=== PATIENT | male | born 1985 | race Caucasian/White ===

== ENCOUNTER 2016-08-27 23:36 | Emergency (ER) | payer SELFPAY ==
[~2016-08-27] VITALS: Ht 177.8 cm; Wt 71.3 kg
[~2016-08-27 23:36] MED LIST: BACT800T5 PO; DOXY100T PO; PERC5TAB12 PO
[2016-08-27 23:43] VITALS: BP 134/79; PULSE 80; RESP 12; TEMP 97.7; O2SAT 100
[2016-08-27 23:53] VITALS: RESP 16; TEMP 97.7
[2016-08-27] MEDS ORDERED: PENI500T PO (23:59)
[2016-08-27] MEDS ORDERED: IBUP-232 PO (23:59)
--- NOTE | 2016-08-27 23:59 | PD ---
HPI Chief Complaint: Oral / Dental Pain or Problem Time Seen by Provider: 23:56 Travel History International Travel<30 days: No Contact w/Intl Traveler<30days: No Traveled to known affect area: No History of Present Illness HPI 31-year-old male presents to the emergency department for severe dental disease with a dental pain and possible abscess. Symptoms have been present for some time now but have worsened over the past 24 hours. [id number]-[id number] medication as provided no relief. Patient plans on seeing a dentist but is here for prescription for antibiotic in the interim. Patient is not diabetic. Patient reports pain 8/10 intensity. PFSH Past Medical History Narrative Medical Musculoskeletal pain; no surgery; tobacco use substance use alcohol use; nursing notes reviewed Hx Anticoagulant Therapy: No Blood Disorders: No Cancer: No Cardiovascular Problems: No Chemotherapy: No Cerebrovascular Accident: No Diabetes: No Diminished Hearing: No Endocrine: No Genitourinary: No Immune Disorder: No Musculoskeletal: Yes (LT ANKLE SX) Neurologic: No Psychiatric: No Reproductive: No Respiratory: No Radiation Therapy: No Past Surgical History AICD: No Arteriovenous Shunt: No Hysterectomy: No Insulin Pump: No Joint Replacement: No Pacemaker: No Other Surgery: Yes (RIGHT ELBOW SURGERY) Social History Alcohol Use: Yes (2X WEEK) Tobacco Use: Yes (1 PPD) Substance Use: Yes (WEED/ ROXIES / DILAUDID PILLS DAILY) Allergies-Medications (Allergen,Severity, Reaction): Coded Allergies: *MDRO Multi-Drug Resistant Organism (Verified Adverse Reaction, Unknown, ) MRSA (thigh wound) 10/2014 Reported Meds & Prescriptions Reported Meds & Active Scripts Active Ibuprofen 600 Mg Tab 600 Mg PO Q6H PRN Penicillin V Potassium 500 Mg Tab 500 Mg PO Q6H 7 Days Percocet 5-325 mg (Oxycodone/Acetaminophen) Oxycodone 5/325 Acetaminophen Tab 1 Tab PO Q6H PRN Bactrim DS (Sulfamethoxazole-Trimethoprim DS) 1 Tab Tab 1 Tab PO BID Doxycycline Hyclate 100 mg (Doxycycline Hyclate) 100 Mg Cap 1 Tab PO BID Review of Systems Except as stated in HPI: all other systems reviewed are Neg General / Constitutional: No: Fever, Chills HENT: Positive: Dental Difficulties Cardiovascular: No: Chest Pain or Discomfort Respiratory: No: Shortness of Breath Gastrointestinal: No: Abdominal Pain Genitourinary: No: Flank Pain Musculoskeletal: No: Myalgias, Arthralgias Skin: No Rash Neurologic: No: Weakness Psychiatric: Positive: Substance Abuse, No: Anxiety Hematologic/Lymphatic: No: Lymph Node Enlargement Physical Exam Narrative GENERAL: Well-developed well-nourished male in no acute distress no respiratory distress; GCS 15 SKIN: Warm and dry. HEAD: Normocephalic. EYES: No scleral icterus. No injection or drainage. ENT: Airway is patent, extensive dental disease with dental caries and gingival edema. NECK: Supple, trachea midline. No JVD or lymphadenopathy. CARDIOVASCULAR: Regular rate and rhythm without murmurs, gallops, or rubs. RESPIRATORY: Breath sounds equal bilaterally. No accessory muscle use. GASTROINTESTINAL: Abdomen soft, non-tender, nondistended. Data Data Last Documented VS Vital Signs Date Time Temp Pulse Resp B/P Pulse Ox O2 Delivery O2 Flow Rate FiO2 08/27/16 23:53 97.7 16 08/27/16 23:43 80 134/79 100 Orders Penicillin V Potassium (Veetids) (08/28/16 00:00) Ibuprofen (Motrin) (08/28/16 00:00) [facility] Medical Decision Making Medical Screen Exam Complete: Yes Emergency Medical Condition: Yes Medical Record Reviewed: Yes Differential Diagnosis Dentalgia, dental abscess, fractured cusp, apical abscess Narrative Course Patient administered first dose of oral antibiotic and ibuprofen; patient encouraged to follow-up with dentist; patient is stable for outpatient management Diagnosis Primary Impression: Dentalgia Additional Impression: Dental abscess Referrals: Dentist call for appointment Patient Instructions: General Instructions Additional Instructions: Follow-up with dentist Complete course of antibiotic May use acetaminophen/Tylenol 650 mg every 6 hours as needed for fever 100.4F or greater or for mild pain May use ibuprofen 600 mg as often as every 6 hours for pain associated with inflammation or for fever 100.4F or greater Follow-up with dentist Return to the emergency department for any concerns or change in condition May use [id number] Orajel for symptom relief per package directions Med/Other Pt SpecificInfo: Prescription(s) given Scripts Ibuprofen 600 Mg [id number] Mg PO Q6H PRN (Pain/Inflammation) #12 TAB Ref 0 Prov:Veronica Galaviz MD 08/27/16 Penicillin V Potassium 500 Mg Rxa085 Mg PO Q6H 7 Days Ref 0 Prov:Veronica Galaviz MD 08/27/16 Disposition: 01 DISCHARGE HOME Condition: Stable Veronica Galaviz MD Aug 27, 2016 23:59
[2016-08-28] MEDS ORDERED: IBUPROFEN 800 MG TAB PO ONE
[2016-08-28] MEDS ORDERED: PENICILLIN V POTASSIUM 500 MG TAB PO ONE
== END 2016-08-28 00:22 | disposition home or self-care (01) ==
LOC: PHED 23:36
DX: K04.7 Periapical abscess without sinus (principal); K08.89 Other specified disorders of teeth and supporting structures; F17.210 Nicotine dependence, cigarettes, uncomplicated
CPT/HCPCS: 99283

== ENCOUNTER 2016-10-03 23:29 | Emergency (ER) | payer SELFPAY ==
[~2016-10-03 23:29] MED LIST changes: +IBUP-232 PO; +PENI500T PO
[2016-10-03 23:31] VITALS: BP 145/73; PULSE 60; RESP 16; TEMP 98.4; O2SAT 100
[2016-10-04] MEDS ORDERED: CLINDAMYCIN 150 MG CAP PO ONE
[2016-10-04] MEDS ORDERED: NAPR500 PO (00:04)
[2016-10-04] MEDS ORDERED: CLIN1CAP5 PO (00:04)
--- NOTE | 2016-10-04 00:04 | PD ---
HPI Chief Complaint: Oral / Dental Pain or Problem Time Seen by Provider: 00:00 Travel History International Travel<30 days: No Contact w/Intl Traveler<30days: No Traveled to known affect area: No History of Present Illness HPI Patient comes in complaining of right lower dental pain ongoing for 2 days. Patient's pain is worse with cold. Patient has been using warm saltwater gargles and Listerine with no improvement of symptoms. Pain is throbbing pressure radiates to his right mandible. Patient states he had similar happen to him about a month ago was seen and started on antibiotics but has not seen a dentist yet. Patient denies any fevers, difficulty swallowing, nausea, vomiting , headache, neck pain, chest pain, or shortness of breath. PFSH Past Medical History Medical History: Denies Significant Hx Hx Anticoagulant Therapy: No Blood Disorders: No Cancer: No Cardiovascular Problems: No Chemotherapy: No Cerebrovascular Accident: No Diabetes: No Diminished Hearing: No Endocrine: No Genitourinary: No Immune Disorder: No Musculoskeletal: Yes (LT ANKLE SX) Neurologic: No Psychiatric: No Reproductive: No Respiratory: No Radiation Therapy: No Past Surgical History AICD: No Arteriovenous Shunt: No Hysterectomy: No Insulin Pump: No Joint Replacement: No Pacemaker: No Other Surgery: Yes (RIGHT ELBOW SURGERY,) Social History Alcohol Use: Yes (1 WEEK ) Tobacco Use: Yes (1 PPD) Substance Use: Yes (WEED/ ROXIES / DILAUDID PILLS DAILY) Allergies-Medications (Allergen,Severity, Reaction): Coded Allergies: *MDRO Multi-Drug Resistant Organism (Verified Adverse Reaction, Unknown, ) MRSA (thigh wound) 10/2014 Reported Meds & Prescriptions Reported Meds & Active Scripts Active Naprosyn (Naproxen) 500 Mg Tab 500 Mg PO Q12HR PRN Clindamycin (Clindamycin HCl) 150 Mg Cap 2 Cap PO Q6H 10 Days Review of Systems Except as stated in HPI: all other systems reviewed are Neg Physical Exam Narrative GENERAL: Well-developed, well nourished, in no acute distress, and non-ill appearing. SKIN: Focused skin assessment warm and dry. HEAD: Atraumatic. Normocephalic. EYES: Pupils equal and round. EOMI. No scleral icterus. No injection or drainage. ENT: No nasal bleeding or discharge. Mucous membranes pink and moist. Poor dentition with no visible or palpable abscess. There is mild soft tissue swelling noted. Floor the mouth, submandibular, submental are all soft to palpation. NECK: Trachea midline. No cervical lymphadenopathy. Supple. No nuclear rigidity. RESPIRATORY: No accessory muscle use. No respiratory distress. MUSCULOSKELETAL: No obvious deformities. No clubbing. No cyanosis. No edema. Full range of motion. NEUROLOGICAL: Awake and alert. No obvious cranial nerve deficits. Motor grossly within normal limits. Normal speech. PSYCHIATRIC: Appropriate mood and affect; insight and judgment normal. Data Data Last Documented VS Vital Signs Date Time Temp Pulse Resp B/P Pulse Ox O2 Delivery O2 Flow Rate FiO2 10/03/16 23:31 98.4 60 16 145/73 100 Orders Clindamycin (Cleocin) (10/04/16 00:00) [facility] Medical Decision Making Medical Screen Exam Complete: Yes Emergency Medical Condition: Yes Differential Diagnosis Dental abscess, dental infection, dentalgia, other Narrative Course The patient presented with dental pain. There is no fever. There is no significant facial swelling or evidence of cellulitis. There is poor dentition but no evidence of drainable abscess at this time. There is no evidence of significant deep or invading abscess at this time. The patient will be placed on antibiotics and pain medication. The patient was instructed to follow up with a dentist. The patient was given the dental referral sheet. Warnings were discussed with the patient regarding worsening of infection. The patient is to return if pain worsens, develops progressive swelling or facial redness or fever. The patient agrees with plan. Patient in no obvious distress upon re-evaluation. Patient was asked if they wanted to speak to my attending, which the patient did not wish to do at this time. Any questions/concerns in reference to patient diagnosis/condition discussed and clarified prior to patient's discharge. Reinforced sheer importance of close follow up with patient's primary physician or primary care clinic and/or dentist. Instructed patient to return to ED immediately, if symptoms return/worsen. Pt showed understanding of above instructions. Further instructions and recommendations were detailed in discharge paperwork. Pt ambulated without difficulty out of ED at discharge. Diagnosis Primary Impression: Infected dental caries Patient Instructions: Dental Abscess (ED), Dental Caries (ED), General Instructions Additional Instructions: Follow-up with your primary care physician and dentist as soon as possible. Rinse mouth with warm salt water gargles. Take all medication as prescribed. Return to the emergency department if symptoms get worse. Med/Other Pt SpecificInfo: Prescription(s) given Scripts Naproxen (Naprosyn)500 Mg Mpp653 Mg PO Q12HR PRN (PAIN SCALE 1 TO 10) #14 TAB Ref 0 Prov:Carlotta Draper DO 10/04/16 Clindamycin 150 Mg Cap2 Cap PO Q6H 10 Days Ref 0 Prov:Carlotta Draper DO 10/04/16 Disposition: 01 DISCHARGE HOME Condition: Stable Logan Bravo Oct 04, 2016 00:03
== END 2016-10-04 01:04 | disposition home or self-care (01) ==
LOC: NEPD 23:29
DX: K02.9 Dental caries, unspecified (principal); Z79.899 Other long term (current) drug therapy; Z72.0 Tobacco use
CPT/HCPCS: 99284

== ENCOUNTER 2016-10-07 18:33 | Emergency (ER) | payer SELFPAY ==
[~2016-10-07] VITALS: Ht 177.8 cm; Wt 70.3 kg
[~2016-10-07 18:33] MED LIST changes: -BACT800T5 PO; +CLIN1CAP5 PO; -DOXY100T PO; -IBUP-232 PO; +NAPR500 PO; -PENI500T PO; -PERC5TAB12 PO
[2016-10-07 18:49] VITALS: BP 133/65; PULSE 73; RESP 16; TEMP 98.3; O2SAT 100
--- NOTE | 2016-10-07 19:20 | PD ---
HPI Chief Complaint: Oral / Dental Pain or Problem Time Seen by Provider: 19:13 Travel History International Travel<30 days: No Contact w/Intl Traveler<30days: No Traveled to known affect area: No History of Present Illness HPI The patient is a 31-year-old male who comes in for the third time this year for dental pain. He was seen at the [facility] 4 days ago and prescribed clindamycin and Naprosyn. He states he wants something more for the pain. He did not call a dentist because he says he cannot afford a dentist. He does have a history of benzodiazepine, cocaine, marijuana and alcohol abuse. He denies any fever. He states he has had this pain for 6 months after it got chipped. The pain is around tooth #29. PFSH Past Medical History Hx Anticoagulant Therapy: No Blood Disorders: No Cancer: No Cardiovascular Problems: No Chemotherapy: No Cerebrovascular Accident: No Diabetes: No Diminished Hearing: No Endocrine: No Genitourinary: No Immune Disorder: No Musculoskeletal: Yes (LT ANKLE SX) Neurologic: No Psychiatric: No Reproductive: No Respiratory: No Radiation Therapy: No Past Surgical History AICD: No Arteriovenous Shunt: No Hysterectomy: No Insulin Pump: No Joint Replacement: No Pacemaker: No Other Surgery: Yes (RIGHT ELBOW SURGERY,) Social History Alcohol Use: Yes (1 WEEK ) Tobacco Use: Yes (1 PPD) Substance Use: Yes (WEED/ ROXIES / DILAUDID PILLS DAILY) Allergies-Medications (Allergen,Severity, Reaction): Coded Allergies: *MDRO Multi-Drug Resistant Organism (Verified Adverse Reaction, Unknown, ) MRSA (thigh wound) 10/2014 Reported Meds & Prescriptions Reported Meds & Active Scripts Active Naprosyn (Naproxen) 500 Mg Tab 500 Mg PO Q12HR PRN Clindamycin (Clindamycin HCl) 150 Mg Cap 2 Cap PO Q6H 10 Days Review of Systems Except as stated in HPI: all other systems reviewed are Neg Physical Exam Narrative GENERAL: Well-nourished, well-developed patient in moderate apparent distress with his dental pain. His vital signs are normal. SKIN: Focused skin assessment warm/dry. HEAD: Normocephalic. EYES: No scleral icterus. No injection or drainage. NECK: Supple, trachea midline. No JVD or lymphadenopathy. CARDIOVASCULAR: Regular rate and rhythm without murmurs, gallops, or rubs. RESPIRATORY: Breath sounds equal bilaterally. No accessory muscle use. GASTROINTESTINAL: Abdomen soft, non-tender, nondistended. MUSCULOSKELETAL: No cyanosis, or edema. BACK: Nontender without obvious deformity. No CVA tenderness. DENTAL: No loose or chipped teeth. No malocclusion. No drainable abscesses are noted. No evidence of Kiel's angina as noted. The patient was less cooperative than normal during the exam. No external swelling of the cheek is noted. Data Data Last Documented VS Vital Signs Date Time Temp Pulse Resp B/P Pulse Ox O2 Delivery O2 Flow Rate FiO2 10/07/16 18:49 98.3 73 16 133/65 100 MDM Medical Decision Making Medical Screen Exam Complete: Yes Emergency Medical Condition: Yes Medical Record Reviewed: Yes Differential Diagnosis Dental infection, drainable abscess, drug seeking behavior Narrative Course The patient left immediately after he learned that he was not going to get any narcotic pain medications. No drainable abscesses were noted. No evidence of Kiel's angina was noted. There was no swelling of the buccal mucosa. The patient states that he is taking his antibiotics correctly and his Naprosyn correctly but this is questionable. He needs to follow-up with a dentist. Impressions: Dental infection, drug seeking behavior Diagnosis Primary Impression: Dentalgia Additional Impression: Drug-seeking behavior Additional Instructions: The patient was advised to follow-up with a dentist. He should continue his medications. Disposition: 07 AGAINST MEDICAL ADVICE Condition: Stable Buddy Irene MD Oct 07, 2016 19:20
== END 2016-10-07 19:14 | disposition left against medical advice (07) ==
LOC: PHED 18:33
DX: K08.89 Other specified disorders of teeth and supporting structures (principal); Z76.5 Malingerer [conscious simulation]; F17.210 Nicotine dependence, cigarettes, uncomplicated
CPT/HCPCS: 99281

== ENCOUNTER 2017-05-14 20:59 | Emergency (ER) | payer SELFPAY ==
[~2017-05-14] VITALS: Ht 175.3 cm; Wt 69.0 kg
[~2017-05-14 20:59] MED LIST changes: +CLIN150C14 PO; -CLIN1CAP5 PO
[2017-05-14 21:02] VITALS: BP 133/70; PULSE 91; RESP 18; TEMP 97.9; O2SAT 98
--- NOTE | 2017-05-14 21:27 | PD ---
HPI Chief Complaint: Musculoskeletal Complaint Time Seen by Provider: 21:20 Travel History International Travel<30 days: No Contact w/Intl Traveler<30days: No Traveled to known affect area: No History of Present Illness HPI The patient is a 32-year-old male who complains of a sharp rib pain for 2 weeks on the left lateral/lower ribs. He states the pain intensity is an 8/10. He denies any fever but did have a recent cough. He does smoke one pack a day. He does have a history of alcohol and cocaine abuse. He denies any trauma. PFSH Past Medical History Medical History: Denies Significant Hx Hx Anticoagulant Therapy: No Blood Disorders: No Cancer: No Cardiovascular Problems: No Chemotherapy: No Cerebrovascular Accident: No Diabetes: No Diminished Hearing: No Endocrine: No Genitourinary: No Immune Disorder: No Musculoskeletal: Yes (LT ANKLE SX) Neurologic: No Psychiatric: No Reproductive: No Respiratory: No Radiation Therapy: No Tetanus Vaccination: Unknown Influenza Vaccination: No ?: Not Past Surgical History AICD: No Arteriovenous Shunt: No Hysterectomy: No Insulin Pump: No Joint Replacement: No Pacemaker: No Other Surgery: Yes (RIGHT ELBOW SURGERY,) Social History Alcohol Use: No (denies) Tobacco Use: Yes (1 PPD) Substance Use: Yes (WEED/ ROXIES / DILAUDID PILLS DAILY ( previous hx )) Allergies-Medications (Allergen,Severity, Reaction): Coded Allergies: *MDRO Multi-Drug Resistant Organism (Verified Adverse Reaction, Unknown, ) MRSA (thigh wound) 10/2014 Reported Meds & Prescriptions Reported Meds & Active Scripts Active Naprosyn (Naproxen) 500 Mg Tab 500 Mg PO Q12HR PRN Clindamycin (Clindamycin HCl) 150 Mg Cap 2 Cap PO Q6H 10 Days Review of Systems Except as stated in HPI: all other systems reviewed are Neg Physical Exam Narrative GENERAL: The patient is alert, oriented 3 and slight apparent distress with his left rib discomfort. His vital signs show heart rate of 91 but are otherwise normal. He does smell of tobacco. SKIN: Focused skin assessment warm/dry. HEAD: Atraumatic. Normocephalic. EYES: Pupils equal and round. No scleral icterus. No injection or drainage. ENT: No nasal bleeding or discharge. Mucous membranes pink and moist. NECK: Trachea midline. No JVD. CARDIOVASCULAR: Regular rate and rhythm. No murmur appreciated. RESPIRATORY: No accessory muscle use. Clear to auscultation. Breath sounds equal bilaterally. No rubs are heard. I cannot reproduce completely the patient's pain by pressing on the chest wall. GASTROINTESTINAL: Abdomen soft, non-tender, nondistended. Hepatic and splenic margins not palpable. MUSCULOSKELETAL: No obvious deformities. No clubbing. No cyanosis. No edema. NEUROLOGICAL: Awake and alert. No obvious cranial nerve deficits. Motor grossly within normal limits. Normal speech. PSYCHIATRIC: Appropriate mood and affect; insight and judgment normal. Data Data Last Documented VS Vital Signs Date Time Temp Pulse Resp B/P (MAP) Pulse Ox O2 Delivery O2 Flow Rate FiO2 05/14/17 21:02 97.9 91 18 133/70 (91) 98 Orders Orders Chest, Pa & Lat (05/14/17 21:27) Electrocardiogram (05/14/17 22:15) MDM Medical Decision Making Medical Screen Exam Complete: Yes Emergency Medical Condition: Yes Medical Record Reviewed: Yes Interpretation(s) X-ray shows small left pleural effusion with minimal left basilar airspace disease. Differential Diagnosis Pneumonia, pleural effusion, pneumothorax-unlikely, pulmonary embolus-unlikely Narrative Course The patient appears to have a small questionable pneumonia with left pleural effusion. This likely accounts for his pleuritic chest pain. Plan: The patient cannot afford antibiotics and will be given Keflex 500 mg 3 times daily for 10 days. He will get a shot of Rocephin here. He will need to quit smoking. Diagnosis Primary Impression: Left lower lobe pneumonia Additional Impression: Pleural effusion, left Additional Instructions: As we discussed, quit smoking and the antibiotic is one tablet 3 times daily. We will give you a shot tonight. Take Motrin 800 mg 3 times daily. Med/Other Pt SpecificInfo: Prescription(s) given (kefl) Scripts Ibuprofen (Ibuprofen) 800 Mg Tab 800 MG PO TID, #33 TAB 0 Refills Prov: Buddy Irene MD 05/14/17 Cephalexin (Keflex) 500 Mg Capsule 500 MG PO TID for Infection for 10 Days, CAP 0 Refills Prov: Buddy Irene MD 05/14/17 Disposition: 01 DISCHARGE HOME Condition: Stable Buddy Irene MD May 14, 2017 21:27
--- NOTE | 2017-05-14 22:23 | RADRPT ---
EXAM DATE/TIME: 05/14/2017 21:30 [facility] COMPARISON: No previous studies available for comparison. INDICATIONS : Left side chest pain. MEDICAL HISTORY : None. SURGICAL HISTORY : None. ENCOUNTER: Initial ACUITY: 2 weeks PAIN SCORE: 5/10 LOCATION: Left chest FINDINGS: PA and lateral views of the chest demonstrate a small left pleural effusion. Minimal left basilar air space disease. Right lung clear. Heart size normal. CONCLUSION: 1. Small left pleural effusion with minimal left basilar airspace disease. Daniel Brantley MD on May 14, 2017 at 22:20 Board Certified Radiologist. This report was verified electronically.
[2017-05-14] MEDS ORDERED: IBUP1TAB7 PO (22:46)
[2017-05-14] MEDS ORDERED: CEPH-460 PO (22:46)
[2017-05-14] MEDS ORDERED: LIDOCAINE HCL 1% PF 30 ML VIAL ONE (22:50)
[2017-05-14] MEDS ORDERED: LIDOCAINE HCL 1% 50 ML VIAL XX ONE (23:00)
[2017-05-14 23:26] VITALS: BP 130/65; TEMP 98.4
--- NOTE | 2017-05-15 22:18 | EKG ---
Date Performed: 05/14/2017 Time Performed: 22:20:05 PTAGE: 32 years EKG: Sinus rhythm MINIMAL VOLTAGE CRITERIA FOR LVH, CONSIDER NORMAL VARIANT BORDERLINE ECG PREVIOUS TRACING : 08/17/2013 18.31 Since the prior tracing, there has been no significant feldman DOCTOR: Rickey Ospina Interpretating Date/Time 05/15/2017 22:17:48
== END 2017-05-14 23:29 | disposition home or self-care (01) ==
LOC: PHEFT 20:59
DX: J18.9 Pneumonia, unspecified organism (principal); J90 Pleural effusion, not elsewhere classified; F17.210 Nicotine dependence, cigarettes, uncomplicated
CPT/HCPCS: 71046; 93005; 96372; 99284; J0696

== ENCOUNTER 2017-08-16 15:01 | Emergency (ER) | payer SELFPAY ==
[~2017-08-16] VITALS: Ht 175.3 cm; Wt 68.5 kg
[~2017-08-16 15:01] MED LIST changes: +CEPH-460 PO; +IBUP1TAB7 PO
[2017-08-16 15:04] VITALS: BP 124/66; PULSE 86; RESP 16; TEMP 99; O2SAT 96
== END 2017-08-16 16:30 | disposition left against medical advice (07) ==
LOC: NED 15:01
DX: R10.9 Unspecified abdominal pain (principal)
CPT/HCPCS: 99281

== ENCOUNTER 2017-09-03 20:58 | Inpatient (IN) | payer OTHER ==
[~2017-09-03] VITALS: Ht 175.3 cm; Wt 69.0 kg
[2017-09-03] MEDS ORDERED: IOHEXOL 350 MG/ML 10 ML VIAL (for RAD DIAG) IVCONTRAST ONE (20:59)
[2017-09-03 21:04] VITALS: BP 140/85; PULSE 106; RESP 20; TEMP 99.6; O2SAT 100
--- NOTE | 2017-09-03 21:12 | PD ---
HPI Chief Complaint: Chest Pain Time Seen by Provider: 21:09 Travel History International Travel<30 days: No Contact w/Intl Traveler<30days: No Traveled to known affect area: No History of Present Illness HPI 32-year-old male smoker presents under police custody for evaluation of chest pain. Symptom onset 3 days ago. he reports a substernal sharp chest pain which is worse with deep inspiration when coughing radiates into the back, no alleviating factors reports that he has had a productive cough for the past week. Denies shortness of breath, nausea or vomiting, abdominal pain, flank pain, fevers or chills. In addition the patient has an abscess in the left arm. Symptom onset 1 week ago. He reports that he has had frequent MRSA skin infections in the past and this feels similar. He reports that he has a history of IV drug use, he does not recall the last time that he injected heroin. He has no other complaints at this time. PFSH Past Medical History Hx Anticoagulant Therapy: No Blood Disorders: No Cancer: No Cardiovascular Problems: No Chemotherapy: No Cerebrovascular Accident: No Diabetes: No Diminished Hearing: No Endocrine: No Genitourinary: No Immune Disorder: No Musculoskeletal: Yes (LT ANKLE SX) Neurologic: No Psychiatric: No Reproductive: No Respiratory: Yes Radiation Therapy: No Past Surgical History AICD: No Arteriovenous Shunt: No Hysterectomy: No Insulin Pump: No Joint Replacement: No Pacemaker: No Other Surgery: Yes (RIGHT ELBOW SURGERY,) Social History Alcohol Use: No (denies) Tobacco Use: Yes (1 PPD) Substance Use: Yes (WEED/ ROXIES / DILAUDID PILLS DAILY ( previous hx )) Allergies-Medications (Allergen,Severity, Reaction): Coded Allergies: *MDRO Multi-Drug Resistant Organism (Verified Adverse Reaction, Unknown, ) MRSA (thigh wound) 10/2014 Reported Meds & Prescriptions Reported Meds & Active Scripts Active No Active Prescriptions or Reported Medications Review of Systems Except as stated in HPI: all other systems reviewed are Neg Physical Exam Narrative GENERAL: Well-developed well-nourished male in no acute distress SKIN: Warm and dry. 3 cm fluctuant left forearm abscess. HEAD: Atraumatic. Normocephalic. EYES: Pupils equal and round. No scleral icterus. No injection or drainage. ENT: No nasal bleeding or discharge. Mucous membranes pink and moist. NECK: Trachea midline. No JVD. CARDIOVASCULAR: Regular rate and rhythm. No murmur appreciated. RESPIRATORY: No accessory muscle use. Clear to auscultation. Breath sounds equal bilaterally. GASTROINTESTINAL: Abdomen soft, non-tender, nondistended. Hepatic and splenic margins not palpable. MUSCULOSKELETAL: No obvious deformities. No clubbing. No cyanosis. No edema. NEUROLOGICAL: Awake and alert. No obvious cranial nerve deficits. Motor grossly within normal limits. Normal speech. PSYCHIATRIC: Appropriate mood and affect; insight and judgment normal. Data Data Last Documented VS Vital Signs Date Time Temp Pulse Resp B/P (MAP) Pulse Ox O2 Delivery O2 Flow Rate FiO2 09/03/17 21:04 99.6 106 20 140/85 (103) 100 Orders Orders Electrocardiogram (09/03/17 21:09) Ckmb (Isoenzyme) Profile (09/03/17 21:09) Complete Blood Count With Diff (09/03/17 21:09) Comprehensive Metabolic Panel (09/03/17 21:09) D-Dimer (09/03/17 21:09) Magnesium (Mg) (09/03/17 21:09) Troponin I (09/03/17 21:09) Lipase (09/03/17 21:09) Chest, Single Ap (09/03/17 21:09) Ecg Monitoring (09/03/17 21:09) Iv Access Insert/Monitor (09/03/17 21:09) Oximetry (09/03/17 21:09) Aspirin Chew (Aspirin Chew) (09/03/17 21:15) Lidocai-Epi 1%-1:100,000 Inj (Xylocaine- (09/03/17 21:15) Wound Culture And Gram Stain (09/03/17 21:09) Vancomycin Inj (Vancomycin Inj) (09/03/17 23:15) Ct Pulmonary Angiogram (09/04/17 ) Iohexol 350 Inj (Omnipaque 350 Inj) (09/03/17 20:59) Cefepime Inj (Maxipime Inj) (09/04/17 01:00) Sodium Chlor 0.9% 1000 Ml Inj (Ns 1000 M (09/04/17 00:54) Drug Screen, Random Urine (09/04/17 00:54) Lactic Acid Sepsis Protocol (09/04/17 00:54) Blood Culture (09/04/17 00:54) Mri C Spine W&W/O Contrast (09/04/17 ) Mri T Spine W & W/O Contrast (09/04/17 ) Mri L Spine W&W/O Contrast (09/04/17 ) Admit Order (Ed Use Only) (09/04/17 01:10) Labs Laboratory Tests Test 09/03/17 21:24 White Blood Count 13.9 TH/MM3 Red Blood Count 4.98 MIL/MM3 Hemoglobin 13.3 GM/DL Hematocrit 39.6 % Mean Corpuscular Volume 79.5 FL Mean Corpuscular Hemoglobin 26.7 PG Mean Corpuscular Hemoglobin Concent 33.5 % Red Cell Distribution Width 15.0 % Platelet Count 390 TH/MM3 Mean Platelet Volume 7.3 FL Neutrophils (%) (Auto) 86.3 % Lymphocytes (%) (Auto) 8.4 % Monocytes (%) (Auto) 4.8 % Eosinophils (%) (Auto) 0.1 % Basophils (%) (Auto) 0.4 % Neutrophils # (Auto) 12.0 TH/MM3 Lymphocytes # (Auto) 1.2 TH/MM3 Monocytes # (Auto) 0.7 TH/MM3 Eosinophils # (Auto) 0.0 TH/MM3 Basophils # (Auto) 0.1 TH/MM3 CBC Comment DIFF FINAL Differential Comment D-Dimer Quantitative (PE/DVT) 1.98 MG/L FEU Blood Urea Nitrogen 11 MG/DL Creatinine 0.85 MG/DL Random Glucose 96 MG/DL Total Protein 8.0 GM/DL Albumin 3.1 GM/DL Calcium Level 9.0 MG/DL Magnesium Level 2.2 MG/DL Alkaline Phosphatase 76 U/L Aspartate Amino Transf (AST/SGOT) 21 U/L Alanine Aminotransferase (ALT/SGPT) 29 U/L Total Bilirubin 0.5 MG/DL Sodium Level 131 MEQ/L Potassium Level 4.1 MEQ/L Chloride Level 95 MEQ/L Carbon Dioxide Level 28.1 MEQ/L Anion Gap 8 MEQ/L Estimat Glomerular Filtration Rate 105 ML/MIN Total Creatine Kinase 26 U/L Troponin I LESS THAN 0.02 NG/ML Lipase 71 U/L MDM Medical Decision Making Medical Screen Exam Complete: Yes Emergency Medical Condition: Yes Medical Record Reviewed: Yes Differential Diagnosis Bronchitis, pleurisy, pericarditis, myocarditis, acute coronary syndrome, aortic dissection, pulmonary embolism, endocarditis Narrative Course The patient was placed on ECG monitoring pulse oximetry. 12 EKG was obtained revealing sinus rhythm with sinus arrhythmia.. Lab work, chest x-ray ordered. The abscess was drained, he verbally consented. Vancomycin initiated. Aspirin administered. CBC reveals WBC count of 13.9. CMP reveals a sodium 131, chloride 95, cardiac enzymes within normal limits. D-dimer is elevated, CT pulmonary angiogram has been ordered. CT pulmonary angiogram is negative for pulmonary emboli but he does have soft tissue swelling around T9-T10 concerning for discitis. He does have some tenderness to palpation along his thoracic spine and his history of IV drug use would certainly be consistent with the CT findings. IV cefepime was added on. The patient will be admitted for further evaluation and treatment. Procedures Procedure Narrative INCISION AND DRAINAGE OF ABSCESS: The area was prepped and was sterilely draped. A subcutaneous wheal of 1% Xylocaine with epinephrine with a total number 7 mL was used to anesthetize the area. The area was properly anesthetized. A number 11 scalpel was used to make a 1.5-cm incision across the area of the abscess. Cultures were obtained. The abscess was drained an irrigated with normal saline. Diagnosis Primary Impression: Discitis Additional Impressions: Leukocytosis Abscess of left arm IV drug user Admitting Information Admitting Physician Requests: Admit Scripts No Active Prescriptions or Reported Meds Raudel Lowry Sep 03, 2017 21:12
[2017-09-03] MEDS ORDERED: ASPIRIN 81 MG CHEW TAB PO ONE (21:15)
[2017-09-03] MEDS ORDERED: LIDOCAINE 1%/EPINEPHrine 1:100,000 SOLN 50 ML VIAL INFIL ONE (21:15)
[2017-09-03 21:56] LABS: BASOPHIL # 0.1 TH/MM3 (0-0.2); BASOPHIL % 0.4 % (0.0-2.0); EOSINOPHIL % 0.1 % (0.0-4.0); HEMATOCRIT 39.6 % (39.0-51.0); HEMOGLOBIN 13.3 GM/DL (13.0-17.0); LYMPH % 8.4 % (9.0-44.0); LYMPHOCYTE # 1.2 TH/MM3 (1.0-4.8); MEAN CELL VOLUME 79.5 FL (80.0-100.0); MEAN CORPUSCULAR HEMOGLOBIN 26.7 PG (27.0-34.0); MEAN CORPUSCULAR HGB CONC 33.5 % (32.0-36.0); MEAN PLATELET VOLUME 7.3 FL (7.0-11.0); MONO % 4.8 % (0.0-8.0); MONOCYTE # 0.7 TH/MM3 (0-0.9); NEUT % 86.3 % (16.0-70.0); PLATELET COUNT 390 TH/MM3 (150-450); RED BLOOD COUNT 4.98 MIL/MM3 (4.50-5.90); WHITE BLOOD COUNT 13.9 TH/MM3 (4.0-11.0)
--- NOTE | 2017-09-03 21:57 | RADRPT ---
EXAM DATE: 09/03/2017 9:28 PM EDT AGE/SEX: 32 years / Male INDICATIONS: Chest pain. CLINICAL DATA: This is the patient's initial encounter. Patient reports that signs and symptoms have been present for 1 day and indicates a pain score of 5/10. MEDICAL/SURGICAL HISTORY: None. None. COMPARISON: No prior exams available for comparison. FINDINGS: A single AP view of the chest demonstrates the lungs to be symmetrically aerated without evidence of mass, infiltrate or effusion. The cardiomediastinal contours are unremarkable. Osseous structures a re intact. CONCLUSION: No acute findings. Minimal basilar atelectasis. Electronically signed by: Daniel Brantley MD 09/03/2017 9:56 PM EDT
[2017-09-03 22:10] LABS: ALBUMIN 3.1 GM/DL (3.4-5.0); AST (GOT) 21 U/L (15-37); BICARBONATE 28.1 MEQ/L (21.0-32.0); BLOOD UREA NITROGEN 11 MG/DL (7-18); CHLORIDE 95 MEQ/L (98-107); CREATININE 0.85 MG/DL (0.60-1.30); GLOMERULAR FILTRATION RATE 105 ML/MIN (>89); GLUCOSE,RANDOM 96 MG/DL (74-106); MAGNESIUM 2.2 MG/DL (1.5-2.5); SODIUM (NA) 131 MEQ/L (136-145)
[2017-09-03 22:11] LABS: ALT (GPT) 29 U/L (12-78)
[2017-09-03 22:14] LABS: ALKALINE PHOSPHATASE 76 U/L (45-117); TOTAL BILIRUBIN ADULT 0.5 MG/DL (0.2-1.0); TROPONIN I LESS THAN 0.02 NG/ML (0.02-0.05)
[2017-09-03] MEDS ORDERED: VANCOMYCIN INJ 1,000 MG in SODIUM CHLOR 0.9% 250 ML INJ 250 ML IV ONE (23:15)
--- NOTE | 2017-09-04 00:44 | RADRPT ---
EXAM DATE: 09/04/2017 12:38 AM EDT AGE/SEX: 32 years / Male INDICATIONS: Chest pain with shortness of breath. CLINICAL DATA: This is the patient's initial encounter. Patient reports that signs and symptoms have been present for 1 day and indicates a pain score of 10/10. MEDICAL/SURGICAL HISTORY: Asthma. Substance abuse . RADIATION DOSE: 9.36 CTDI (mGy) COMPARISON: No prior exams available for comparison. TECHNIQUE: Volumetric scanning was performed using a multi-row detector CT scanner during bolus infu caitlyn of 50 ml Omnipaque 350 (iohexol) nonionic water-soluble contrast as a single exam dose. The rhina a was post processed with a variety of visualization algorithms including full volume maximum intensi ty projection and sliding thin slab reformation. Using automated exposure control and adjustment of t he mA and/or kV according to patient size, radiation dose was kept as low as reasonably achievable to obtain optimal diagnostic quality images. DICOM format image data is available electronically for r eview and comparison. FINDINGS: Pulmonary Arteries: No filling defects are seen in the pulmonary arteries out to the subsegmental ve ssels. The left and right pulmonary arteries are normal in diameter. Lung: No infiltrates seen. Effusion: None. Mediastinum: No evidence of mediastinal or hilar adenopathy. Other: The axilla is unremarkable. There is some soft tissue swelling around the T9-T10 disc space w ith endplate irregularity. Differential includes discitis versus a compression fracture T10: For raffi briseno. CONCLUSION: 1. Soft tissue swelling around T9-T10 concerning for discitis. 2. No evidence of pulmonary emboli Electronically signed by: Maged Guallpa MD 09/04/2017 12:43 AM EDT
[2017-09-04] MEDS ORDERED: SODIUM CHLOR 0.9% 1000 ML INJ 1,000 ML IV SCH ×2 (00:54→02:00)
[2017-09-04] MEDS ORDERED: CEFEPIME INJ 2,000 MG in SODIUM CHLORIDE 0.9% INJ 100 ML IV ONE (01:00)
[2017-09-04] MEDS ORDERED: BISACODYL 10 MG SUPP RECTAL PRN (02:00)
[2017-09-04] MEDS ORDERED: Vancomycin Consult Pharmacy 1 EA OTHER SCH (02:00)
[2017-09-04] MEDS ORDERED: NALOXONE HCL 0.4 MG/ML AMP IV PUSH PRN (02:00)
[2017-09-04] MEDS ORDERED: MAGNESIUM HYDROXIDE SUSP 30 ML CUP PO PRN (02:00)
[2017-09-04] MEDS ORDERED: SODIUM CHLORIDE 0.9% FLUSH 10 ML FLUSH IV FLUSH PRN (02:00)
[2017-09-04] MEDS ORDERED: LACTULOSE SYRUP 20 GM/30 ML CUP PO PRN (02:00)
[2017-09-04] MEDS ORDERED: MORPHINE SULFATE 4 MG/ML INJ IV PUSH PRN (02:00)
[2017-09-04] MEDS ORDERED: SENNOSIDES 8.6 MG TAB PO PRN (02:00)
[2017-09-04] MEDS ORDERED: ACETAMINOPHEN 325 MG TAB PO PRN (02:00)
--- NOTE | 2017-09-04 02:28 | HHI.HP ---
[facility] No Primary Care Physician Admission Diagnosis Discitis, left arm abscess, leukocytosis Diagnoses: Travel History International Travel<30 Days: No Contact w/Intl Traveler <30 Da: No Traveled to Known Affected Are: No History of Present Illness 32-year-old male with a past medical history significant for IV drug abuse presents the emergency department for the evaluation of chest and back pain. The patient reports he has had pain in his lumbar spine for approximately 3-4 weeks with accompanying fever/chills. He also reports a chest pain/pressure that has been going on intermittently for the past 2 days, now resolved. He denies any abdominal pain. No nausea/vomiting/diarrhea. No lateralizing signs/ symptoms. No loss of bowel or bladder. No lower extremity weakness. Review of Systems Except as stated in HPI: all other systems reviewed are Neg Past Family Social History Past Medical History IV drug abuse Past Surgical History Right elbow Left ankle Reported Medications Reported Meds & Active Scripts Active No Active Prescriptions or Reported Medications Allergies: Coded Allergies: *MDRO Multi-Drug Resistant Organism (Verified Adverse Reaction, Unknown, ) MRSA (thigh wound) 10/2014 Family History Negative for CAD/DM Social History Smokes approximately 1 pack per day. Denies alcohol. History of IV drug abuse , last use approximately 3 months ago. Now snorts heroin. Physical Exam Vital Signs Vital Signs Date Time Temp Pulse Resp B/P (MAP) Pulse Ox O2 Delivery O2 Flow Rate FiO2 09/03/17 21:04 99.6 106 20 140/85 (103) 100 Physical Exam GENERAL: male lying in bed SKIN: No rashes, ecchymoses or lesions. Cool and dry. HEAD: Atraumatic. Normocephalic. No temporal or scalp tenderness. EYES: Pupils equal round and reactive. Extraocular motions intact. No scleral icterus. No injection or drainage. ENT: Nose without bleeding, purulent drainage or septal hematoma. Throat without erythema, tonsillar hypertrophy or exudate. Uvula midline. Airway patent. NECK: Trachea midline. No JVD or lymphadenopathy. Supple, nontender, no meningeal signs. CARDIOVASCULAR: Regular rate and rhythm without murmurs, gallops, or rubs. RESPIRATORY: Clear to auscultation. Breath sounds equal bilaterally. No wheezes , rales, or rhonchi. GASTROINTESTINAL: Abdomen soft, non-tender, nondistended. No hepato-splenomegaly , or palpable masses. No guarding. MUSCULOSKELETAL: Extremities without clubbing, cyanosis, or edema. No joint tenderness, effusion, or edema noted. No calf tenderness. NEUROLOGICAL: Awake and alert. Cranial nerves II through XII intact. Motor and sensory grossly within normal limits. Normal speech. Laboratory Laboratory Tests Test 09/03/17 21:24 09/04/17 01:27 09/04/17 01:48 White Blood Count 13.9 Red Blood Count 4.98 Hemoglobin 13.3 Hematocrit 39.6 Mean Corpuscular Volume 79.5 Mean Corpuscular Hemoglobin 26.7 Mean Corpuscular Hemoglobin Concent 33.5 Red Cell Distribution Width 15.0 Platelet Count 390 Mean Platelet Volume 7.3 Neutrophils (%) (Auto) 86.3 Lymphocytes (%) (Auto) 8.4 Monocytes (%) (Auto) 4.8 Eosinophils (%) (Auto) 0.1 Basophils (%) (Auto) 0.4 Neutrophils # (Auto) 12.0 Lymphocytes # (Auto) 1.2 Monocytes # (Auto) 0.7 Eosinophils # (Auto) 0.0 Basophils # (Auto) 0.1 CBC Comment DIFF FINAL Differential Comment D-Dimer Quantitative (PE/DVT) 1.98 Blood Urea Nitrogen 11 Creatinine 0.85 Random Glucose 96 Total Protein 8.0 Albumin 3.1 Calcium Level 9.0 Magnesium Level 2.2 Alkaline Phosphatase 76 Aspartate Amino Transf (AST/SGOT) 21 Alanine Aminotransferase (ALT/SGPT) 29 Total Bilirubin 0.5 Sodium Level 131 Potassium Level 4.1 Chloride Level 95 Carbon Dioxide Level 28.1 Anion Gap 8 Estimat Glomerular Filtration Rate 105 Total Creatine Kinase 26 Troponin I LESS THAN 0.02 Lipase 71 Urine Opiates Screen POS Urine Barbiturates Screen NEG Urine Amphetamines Screen NEG Urine Benzodiazepines Screen NEG Urine Cocaine Screen POS Urine Cannabinoids Screen POS Lactic Acid Level 0.5 Date/Time Source Procedure Growth Status 09/04/17 01:48 Blood Peripheral Aerobic Blood Culture Pending Received 09/04/17 01:48 Blood Peripheral Anaerobic Blood Culture Pending Received 09/03/17 22:08 Wound Arm Gram Stain Pending Received 09/03/17 22:08 Wound Arm Wound Culture Pending Received Result Diagram: 09/03/17212309/03/172123 Caprinmelody VTE Risk Assessment Caprini VTE Risk Assessment: No/Low Risk (score <= 1) Caprini Risk Assessment Model Point Value = 1 Point Value = 2 Point Value = 3 Point Value = 5 Age 41-60 Minor surgery BMI > 25 kg/m2 Swollen legs Varicose veins or History of unexplained or recurrent spontaneous Oral contraceptives or hormone replacement Sepsis (< 1 month) Serious lung disease, including pneumonia (< 1 month) Abnormal pulmonary function Acute myocardial infarction Congestive heart failure (< 1 month) History of inflammatory bowel disease Medical patient at bed rest Age 61-74 Arthroscopic surgery Major open surgery (> 45 min) Laparoscopic surgery (> 45 min) Malignancy Confined to bed (> 72 hours) Immobilizing plaster cast Central venous access Age >= 75 History of VTE Family history of VTE Factor V Leiden Prothrombin [id number] Lupus anticoagulant Anticardiolipin antibodies Elevated serum homocysteine Heparin-induced thrombocytopenia Other congenital or acquired thrombophilia Stroke (< 1 month) Elective arthroplasty Hip, pelvis, or leg fracture Acute spinal cord injury (< 1 month) Prophylaxis Regimen Total Risk Factor Score Risk Level Prophylaxis Regimen 0-1 Low Early ambulation 2 Moderate Order ONE of the following: *Sequential Compression Device (SCD) *Heparin 5000 units SQ BID 3-4 Higher Order ONE of the following medications: *Heparin 5000 units SQ TID *Enoxaparin/Lovenox 40 mg SQ daily (WT < 150 kg, CrCl > 30 mL/min) *Enoxaparin/Lovenox 30 mg SQ daily (WT < 150 kg, CrCl > 10-29 mL/min) *Enoxaparin/Lovenox 30 mg SQ BID (WT < 150 kg, CrCl > 30 mL/min) AND/OR *Sequential Compression Device (SCD) 5 or more Highest Order ONE of the following medications: *Heparin 5000 units SQ TID (Preferred with Epidurals) *Enoxaparin/Lovenox 40 mg SQ daily (WT < 150 kg, CrCl > 30 mL/min) *Enoxaparin/Lovenox 30 mg SQ daily (WT < 150 kg, CrCl > 10-29 mL/min) *Enoxaparin/Lovenox 30 mg SQ BID (WT < 150 kg, CrCl > 30 mL/min) AND *Sequential Compression Device (SCD) Assessment and Plan Assessment and Plan Assessment/plan: 1. Discitis CTA significant for soft tissue swelling around T9-T10 concerning for discitis MRI spine pending Neurosurgery consulted, appreciate recommendations Infectious disease consulted, appreciate recommendations Vancomycin and cefepime Echo pending Blood cultures pending 2. History of IV drug abuse/tobacco abuse Cessation counseling provided FEN N.p.o. NS at 100 cc/hour Electrolytes: Monitor and replete as needed Physician Certification 2 Midnight Certification Type: Admission for Inpatient Services Order for Inpatient Services The services are ordered in accordance with Medicare regulations or non- Medicare payer requirements, as applicable. In the case of services not specified as inpatient-only, they are appropriately provided as inpatient services in accordance with the 2-midnight benchmark. Estimated LOS (days): 2 2 days is the estimated time the patient will need to remain in the hospital, assuming treatment plan goals are met and no additional complications. Post-Hospital Plan: Not yet determined Carlotta Henriquez MD Sep 04, 2017 02:28
[2017-09-04] MEDS ORDERED: ONDANSETRON ODT 4 MG TAB PO PRN (02:30)
--- NOTE | 2017-09-04 02:36 | PD.CONS ---
HPI Service Neurosurgery Consult Requested By Emergency room Reason for Consult Possible T9-10 discitis Primary Care Physician No Primary Care Physician History of Present Illness 32-year-old male presents to the emergency room with complaint of several days of progressive mid to lower thoracic region pain. He complains of fever and chills. No nausea vomiting. No headache or neck pain. Denies any confusion. No seizures reported. Denies any pain which is numbness in the extremities or loss of bowel or bladder control. No extremity spasm. No history of previous spinal infections. Positive history IV drug abuse, last time approximately 6-8 weeks ago according to the patient. Review of Systems Constitutional: COMPLAINS OF: Fever, Chills, DENIES: Fatigue, Dizziness Eyes: DENIES: Blurred vision, Diplopia Ears, nose, mouth, throat: DENIES: Vertigo, Nasal discharge, Ear Pain Respiratory: DENIES: Cough, Sputum production, Shortness of breath Cardiovascular: DENIES: Chest pain Gastrointestinal: DENIES: Abdominal pain, Diarrhea, Nausea, Vomiting Genitourinary: DENIES: Urinary incontinence Musculoskeletal: COMPLAINS OF: Muscle aches, Back pain, DENIES: Joint pain, Joint Swelling, Neck pain Hematologic/lymphatic: DENIES: Bruising Neurologic: DENIES: Abnormal gait, Headache, Localized weakness Psychiatric: DENIES: Confusion Past Family Social History Allergies: Coded Allergies: *MDRO Multi-Drug Resistant Organism (Verified Adverse Reaction, Unknown, ) MRSA (thigh wound) 10/2014 Past Medical History Denies history of cardiac, pulmonary, gastrointestinal disease, diabetes, hypertension Past Surgical History Elbow surgery, lower extremity surgery Reported Medications Reported Meds & Active Scripts Active No Active Prescriptions or Reported Medications Family History Negative cardiac disease ,diabetes, cancer Social History Smokes 1 pack cigarettes per day Occasional alcohol IV drug abuse Physical Exam Vital Signs Vital Signs Date Time Temp Pulse Resp B/P (MAP) Pulse Ox O2 Delivery O2 Flow Rate FiO2 09/03/17 21:04 99.6 106 20 140/85 (103) 100 Physical Exam GENERAL: This is a well-nourished, well-developed patient, no apparent distress. SKIN: No abrasions, contusion, rash noted. Skin warm and dry. HEAD: Atraumatic. Normocephalic. No temporal or scalp tenderness. EYES: Sclerae are clear and nonicteric ENT: No facial edema or ecchymosis. No periorbital edema. No CSF otorrhea or rhinorrhea. No palpable facial fracture or deformity. NECK: Trachea midline. No cervical spine tenderness. CARDIOVASCULAR: Regular rate and rhythm without murmurs, gallops, or rubs. RESPIRATORY: Clear to auscultation. Breath sounds equal bilaterally. No wheezes , rales, or rhonchi. GASTROINTESTINAL: Abdomen soft, non-tender, nondistended. No hepato-splenomegaly , or palpable masses. No guarding. MUSCULOSKELETAL: Extremities without cyanosis, or edema. No joint tenderness, or edema noted. No calf tenderness. Dorsalis pedis pulses 2+ bilateral NEUROLOGICAL: Awake and alert Oriented X 3 Speech is clear Conversant and appropriate Follow simple commands well Answers questions appropriately Reasonable judgment and insight Recent and remote memory are intact No evidence of anxiety or depression Pupils are equal and reactive to accommodation. Extra-ocular movements, visual peguero to confrontation, facial sensorimotor, tongue, palate, sternocleidomastoid testing, hearing to finger rub testing, and bilateral shoulder shrug are all intact. Sensation is intact to light touch in all extremities Strength normal major flexion and extension groups all extremities Ashok's absent bilaterally No ankle clonus Plantar responses absent bilateral Fine motor movements intact upper extremities Laboratory Laboratory Tests Test 09/03/17 21:24 09/04/17 01:27 09/04/17 01:48 White Blood Count 13.9 Red Blood Count 4.98 Hemoglobin 13.3 Hematocrit 39.6 Mean Corpuscular Volume 79.5 Mean Corpuscular Hemoglobin 26.7 Mean Corpuscular Hemoglobin Concent 33.5 Red Cell Distribution Width 15.0 Platelet Count 390 Mean Platelet Volume 7.3 Neutrophils (%) (Auto) 86.3 Lymphocytes (%) (Auto) 8.4 Monocytes (%) (Auto) 4.8 Eosinophils (%) (Auto) 0.1 Basophils (%) (Auto) 0.4 Neutrophils # (Auto) 12.0 Lymphocytes # (Auto) 1.2 Monocytes # (Auto) 0.7 Eosinophils # (Auto) 0.0 Basophils # (Auto) 0.1 CBC Comment DIFF FINAL Differential Comment D-Dimer Quantitative (PE/DVT) 1.98 Blood Urea Nitrogen 11 Creatinine 0.85 Random Glucose 96 Total Protein 8.0 Albumin 3.1 Calcium Level 9.0 Magnesium Level 2.2 Alkaline Phosphatase 76 Aspartate Amino Transf (AST/SGOT) 21 Alanine Aminotransferase (ALT/SGPT) 29 Total Bilirubin 0.5 Sodium Level 131 Potassium Level 4.1 Chloride Level 95 Carbon Dioxide Level 28.1 Anion Gap 8 Estimat Glomerular Filtration Rate 105 Total Creatine Kinase 26 Troponin I LESS THAN 0.02 Lipase 71 Urine Opiates Screen POS Urine Barbiturates Screen NEG Urine Amphetamines Screen NEG Urine Benzodiazepines Screen NEG Urine Cocaine Screen POS Urine Cannabinoids Screen POS Lactic Acid Level 0.5 Date/Time Source Procedure Growth Status 09/04/17 01:48 Blood Peripheral Aerobic Blood Culture Pending Received 09/04/17 01:48 Blood Peripheral Anaerobic Blood Culture Pending Received 09/03/17 22:08 Wound Arm Gram Stain Pending Received 09/03/17 22:08 Wound Arm Wound Culture Pending Received Result Diagram: 09/03/17212309/03/172123 Imaging Last Impressions CT Angiography 09/04/17 0000 Signed Impressions: CONCLUSION: 1. Soft tissue swelling around T9-T10 concerning for discitis. 2. No evidence of pulmonary emboli Chest X-Ray 09/03/[id number] Signed Impressions: CONCLUSION: No acute findings. Minimal basilar atelectasis. Assessment and Plan Assessment and Plan Impression: 1. Possible T9-10 discitis based on initial CT-angiogram results. No focal neurologic deficit on exam. Plan: Discussed with the patient Await MRI brain and spine results. Possible CT-guided biopsy depending on MRI results. Continue non-chemical DVT prophylaxis, avoid antiplatelet agents pending possible biopsy or other invasive procedure. Krish Santos MD Sep 04, 2017 02:36
[2017-09-04 02:46] VITALS: BP 113/56; PULSE 72; RESP 16; O2SAT 100
[2017-09-04 03:55] VITALS: BP 132/68; PULSE 81; RESP 16; TEMP 98.4; O2SAT 100
[2017-09-04 05:12] LABS: TROPONIN I LESS THAN 0.02 NG/ML (0.02-0.05)
[2017-09-04 08:18] VITALS: BP 109/64; PULSE 63; RESP 18; TEMP 98.1; O2SAT 100
[2017-09-04] MEDS ORDERED: SODIUM CHLORIDE 0.9% FLUSH 10 ML FLUSH IV FLUSH SCH (09:00)
[2017-09-04] MEDS ORDERED: DOCUSATE SODIUM 50 MG/SENNA 8.6 MG TAB PO SCH (09:00)
[2017-09-04] MEDS ORDERED: VANCOMYCIN INJ 1,000 MG in SODIUM CHLOR 0.9% 250 ML INJ 250 ML IV SCH (09:00)
[2017-09-04] MEDS ORDERED: CEFEPIME INJ 2,000 MG in SODIUM CHLORIDE 0.9% INJ 100 ML IV SCH (10:00)
--- NOTE | 2017-09-04 10:27 | PD.CONS ---
History of Present Illness Service Infectious disease Consult Requested By Dr Henriquez Reason for Consult Evaluate patient with possible discitis Primary Care Physician No Primary Care Physician Diagnoses: History of Present Illness Patient seen and examined. Records reviewed. Patient is a 32-year-old male, with known IV drug use, started having problem in the low thoracic spine about 3 weeks ago. The pain was quite severe and it radiates to his low anterior chest area. The chest pain has resolved, but he continues to have pain in the low thoracic area. He had some subjective fevers. Denies any cough or congestion or any shortness of breath. Has not had any nausea or vomiting, GI or any urinary complaints. Patient has had boils , in his upper extremities, some in the areas where he had injected. The one in his right arm he drained on his own. The one in the left forearm was drained here in the emergency room. He denies any problem with his lower extremity, or any bladder or bowel incontinence. Since admission he has not been febrile. He had a CTA of the chest to evaluate his chest pain, and there was no evidence of pulmonary embolism, but there were abnormal findings noted in T9-T10 suggestive of discitis. His WBC is mildly elevated at 13,000. Infectious disease consultation has been requested to evaluate the patient. Review of Systems Constitutional: COMPLAINS OF: Fever, Chills Eyes: DENIES: Eye pain Ears, nose, mouth, throat: DENIES: Nasal discharge, Oral lesions, Throat pain, Ear Pain, Sinus Pain, Toothache Respiratory: DENIES: Cough, Sputum production, Shortness of breath Cardiovascular: COMPLAINS OF: Chest pain, DENIES: Palpitations, Syncope, Dyspnea on Exertion, Lower Extremity Edema Gastrointestinal: DENIES: Abdominal pain, Diarrhea, Nausea, Vomiting, Difficulty Swallowing Genitourinary: DENIES: Urgency, Hematuria, Dysuria Musculoskeletal: COMPLAINS OF: Back pain, DENIES: Joint pain, Muscle aches, Neck pain Integumentary: DENIES: Rash Hematologic/lymphatic: DENIES: Lymphadenopathy Neurologic: DENIES: Headache, Localized weakness Psychiatric: DENIES: Hallucinations Past Family Social History Allergies: Coded Allergies: *MDRO Multi-Drug Resistant Organism (Verified Adverse Reaction, Unknown, ) MRSA (thigh wound) 10/2014 Past Medical History Active IV drug use Recurrent boils Past Surgical History Right elbow surgery Left ankle surgery Active Ordered Medications Current Medications Medications (Trade) Dose Ordered Sig/Juana Route Start Time Stop Time Status Last Admin Pharmacy Profile Note 0 ml @ 0 mls/hr UNSCH OTHER 09/04/17 02:00 Vancomycin HCl 1000 mg/Sodium Chloride 250 ml @ 250 mls/hr Q8H IV 09/04/17 09:00 Cefepime HCl 2000 mg/Sodium Chloride 100 ml @ 200 mls/hr Q8H IV 09/04/17 10:00 Sodium Chloride 1,000 ml @ 100 mls/hr Q10H IV 09/04/17 02:00 09/04/17 02:51 (NS Flush) 2 ml UNSCH PRN IV FLUSH 09/04/17 02:00 (NS Flush) 2 ml BID IV FLUSH 09/04/17 09:00 (Tylenol) 650 mg Q4H PRN PO 09/04/17 02:00 (Zofran Odt) 4 mg Q6H PRN PO 09/04/17 02:30 (Narcan Inj) 0.4 mg UNSCH PRN IV PUSH 09/04/17 02:00 (Nallely-Colace) 1 tab BID PO 09/04/17 09:00 (Milk Of Magnesia Liq) 30 ml Q12H PRN PO 09/04/17 02:00 (Senokot) 17.2 mg Q12H PRN PO 09/04/17 02:00 (Dulcolax Supp) 10 mg DAILY PRN RECTAL 09/04/17 02:00 (Lactulose Liq) 30 ml DAILY PRN PO 09/04/17 02:00 (Morphine Inj) 4 mg Q3H PRN IV PUSH 09/04/17 02:00 09/04/17 02:57 ([facility] Ordered Lab Info) SPECIFIC LAB TO BE ... ONCE ONCE .XX 09/05/17 08:45 09/05/17 08:46 Family History Noncontributory to current ID problem Social History Smokes approximately 1 pack per day. Denies alcohol. History of IV drug abuse, states last use about 6-8 weeks ago. Snorts heroin Physical Exam Vital Signs Vital Signs Date Time Temp Pulse Resp B/P (MAP) Pulse Ox O2 Delivery O2 Flow Rate FiO2 09/04/17 08:18 98.1 63 18 109/64 (79) 100 09/04/17 03:55 98.4 81 16 132/68 (89) 100 09/04/17 03:37 09/04/17 02:46 72 16 113/56 (75) 100 Room Air 09/03/17 21:04 99.6 106 20 140/85 (103) 100 Physical Exam GENERAL: Patient is a thin, well-developed male, awake and alert, not in respiratory distress. SKIN: Warm and dry. No generalized rash, no ecchymoses and no evidence of embolic lesions. Has tattoos HEAD: Atraumatic. Normocephalic. No temporal wasting, or tenderness. EYES: Shafter conjunctiva. No petechia or hemorrhage. Pupils equal, round and reactive to light. Extraocular movements full and intact. No scleral icterus. No injection or drainage. EARS, NOSE AND THROAT: Nose without bleeding or purulent nasal discharge. No sinus tenderness. Mucous membranes pink and moist. No oral lesions noted. No exudate. No oral thrush. NECK: Trachea midline. Supple and not tender, no meningeal signs CARDIOVASCULAR: Regular rate and rhythm. No murmurs, rubs or gallops heard RESPIRATORY: Clear to auscultation. Breath sounds equal bilaterally. No rales , wheezing or rhonchi ABDOMEN: Soft, non-tender, nondistended. Bowel sounds present and normoactive. No guarding. No rebound. No organomegaly. BACK: No redness or swelling noted in spine area EXTREMITIES: No clubbing, cyanosis, or edema. No joint effusion, has good ROM. No calf tenderness. Well perfused and warm. NEUROLOGICAL: Awake and alert. Cranial nerves grossly intact. Motor grossly within normal limits. PSYCHIATRIC: Normal affect, calm and cooperative. LINE: No evidence of infection Laboratory Laboratory Tests Test 09/03/17 21:24 09/04/17 01:27 09/04/17 01:48 09/04/17 03:45 White Blood Count 13.9 Red Blood Count 4.98 Hemoglobin 13.3 Hematocrit 39.6 Mean Corpuscular Volume 79.5 Mean Corpuscular Hemoglobin 26.7 Mean Corpuscular Hemoglobin Concent 33.5 Red Cell Distribution Width 15.0 Platelet Count 390 Mean Platelet Volume 7.3 Neutrophils (%) (Auto) 86.3 Lymphocytes (%) (Auto) 8.4 Monocytes (%) (Auto) 4.8 Eosinophils (%) (Auto) 0.1 Basophils (%) (Auto) 0.4 Neutrophils # (Auto) 12.0 Lymphocytes # (Auto) 1.2 Monocytes # (Auto) 0.7 Eosinophils # (Auto) 0.0 Basophils # (Auto) 0.1 CBC Comment DIFF FINAL Differential Comment D-Dimer Quantitative (PE/DVT) 1.98 Blood Urea Nitrogen 11 Creatinine 0.85 Random Glucose 96 Total Protein 8.0 Albumin 3.1 Calcium Level 9.0 Magnesium Level 2.2 Alkaline Phosphatase 76 Aspartate Amino Transf (AST/SGOT) 21 Alanine Aminotransferase (ALT/SGPT) 29 Total Bilirubin 0.5 Sodium Level 131 Potassium Level 4.1 Chloride Level 95 Carbon Dioxide Level 28.1 Anion Gap 8 Estimat Glomerular Filtration Rate 105 Total Creatine Kinase 26 41 Troponin I LESS THAN 0.02 LESS THAN 0.02 Lipase 71 Urine Opiates Screen POS Urine Barbiturates Screen NEG Urine Amphetamines Screen NEG Urine Benzodiazepines Screen NEG Urine Cocaine Screen POS Urine Cannabinoids Screen POS Lactic Acid Level 0.5 Date/Time Source Procedure Growth Status 09/04/17 01:48 Blood Peripheral Aerobic Blood Culture Pending Received 09/04/17 01:48 Blood Peripheral Anaerobic Blood Culture Pending Received 09/03/17 22:08 Wound Arm Gram Stain Pending Received 09/03/17 22:08 Wound Arm Wound Culture Pending Received Result Diagram: 09/03/17212309/03/[id number] Imaging RADIOLOGY STUDIES/FILMS REVIEWED CT Angiography 09/04/17 0000 Signed Impressions: CONCLUSION: 1. Soft tissue swelling around T9-T10 concerning for discitis. 2. No evidence of pulmonary emboli Chest X-Ray 09/03/172108 Signed Impressions: CONCLUSION: No acute findings. Minimal basilar atelectasis. Assessment and Plan Assessment and Plan IMPRESSION Possible T9-10 discitis Active IVDU Skin abscess L forearms S/P drainage, C/S pending RECOMMENDATION Seen by NS MRI brain and spine has been ordered Hold Abx for now - on Vanco and Cefepime Follow C/S Will likely need diagnostic aspiration of abnormality seen on MRI Monitor progress I will follow along with you Thank you for this consultation Jeri Mason MD Sep 04, 2017 10:26
[2017-09-04 11:01] VITALS: RESP 18
--- NOTE | 2017-09-04 13:52 | RADRPT ---
EXAM DATE: 09/04/2017 1:35 PM EDT AGE/SEX: 32 years / Male INDICATIONS: Abscess. IVDA. CLINICAL DATA: This is the patient's subsequent encounter. Patient reports that signs and symptoms h ave been present for 2 days and indicates a pain score of 6/10. MEDICAL/SURGICAL HISTORY: . IVDU. . Abscess drainage of arm. COMPARISON: No prior exams available for comparison. TECHNIQUE: Multiplanar, multisequence MRI of the thoracic spine was performed. FINDINGS: A limited MRI of the thoracic spine was performed. Patient refused further imaging which limits the e valuation of this examination. Sagittal T1 and T2 images were performed. On this limited examination there is bone marrow edema within the body of T10 suggestive of a subacute mild compression fracture injury along the superior endplate of T10. There is normal signal in the disc spaces above and below T10. The rest of the thoracic vertebral bodies are grossly intact. There is no evidence of any signif icant spondylolisthesis. There appears to be some central bulging at T12-L1. Axial images were not pe rformed. Limited exam of the spinal cord is unremarkable. CONCLUSION: 1. Limited examination. 2. Bone marrow edema in the body of T10 suggesting a mild compression fracture injury along the supe rior endplate of T10. 3. Mild to moderate central bulging T12-L1 Electronically signed by: Herb De Santiago MD 09/04/2017 1:50 PM EDT
--- NOTE | 2017-09-04 17:01 | EKG ---
Date Performed: 09/03/2017 Time Performed: 22:12:49 PTAGE: 32 years EKG: Sinus rhythm WITH SINUS ARRHYTHMIA NORMAL ECG PREVIOUS TRACING : 05/14/2017 22.20 Since the previous tracing, no significant change noted DOCTOR: Jermaine Salazar Interpretating Date/Time 09/04/2017 16:59:06
[2017-09-05] MEDS ORDERED: PHARMACY ORDERED LAB ONE (08:45)
== END 2017-09-04 11:47 | disposition left against medical advice (07) | DRG 603 ==
LOC: NEPD 20:58 → NEDA 09-04 01:13 → NEPGCP 09-04 03:55
PROVIDERS: ADMIT Hospitalist; ATTEND Hospitalist
PROC: 0H9EXZZ Drainage of Left Lower Arm Skin, External Approach (ICD-10-PCS; principal; 2017-09-03)
DX: L02.414 Cutaneous abscess of left upper limb (principal); D72.829 Elevated white blood cell count, unspecified; M46.44 Discitis, unspecified, thoracic region; M54.5 Low back pain; R07.9 Chest pain, unspecified; R50.9 Fever, unspecified; F19.10 Other psychoactive substance abuse, uncomplicated; F17.210 Nicotine dependence, cigarettes, uncomplicated; Z86.14 Personal history of Methicillin resistant Staphylococcus aureus infection
CPT/HCPCS: 71045; 71275; 72146; 80053; 80307; 82550; 83605; 83690; 83735; 84484; 85025; 85379; 87040; 87070; 87205; 93005; J0692; J2270; J3370; J7030; J7050; Q9967

== ENCOUNTER 2017-09-27 13:14 | Inpatient (IN) ==
--- NOTE | 2017-09-27 22:02 | ED ---
HPI General Chief Complaint: Back Pain/Injury Stated Complaint: Poss Infection Time Seen by Provider: 09/27/17 21:10 Source: patient Limitations: no limitations History of Present Illness HPI Narrative: Patient is a 2-year-old male who was in our ER about a 2 weeks ago had an MRI that showed a edema around 1 of his disc thoracic discharged with a questionable compression fracture he said he went to another hospital [facility] where they diagnosed him with having an infection of his back and start him on antibiotics however he said they would not allow family in and he left AGAINST MEDICAL ADVICE that was a week or 2 ago he was not on antibiotics since he is coming in saying having pain chills back pain not currently on any antibiotics. Patient is afebrile triage no Reiger's no discoloration of his back or swelling or obvious pain with percussion of the spinous processes patient is complaining that he has severe continued pain and had been diagnosed with thoracic discitis and not fully treated due to leaving AMA from [facility]. Pt has had abscess with MRSA POSITIVE CULTURES IN THE PAST ,, PT HAS HAD IVDA HX Related Data Home Medications Medication Instructions Recorded Confirmed No Known Home Medications 09/28/17 09/28/17 Allergies Allergy/AdvReac Type Severity Reaction Status Date / Time *MDRO Multi-Drug Resistant AdvReac Unknown Uncoded 09/03/17 21:10 Organism Review of Systems ROS Unobtainable All other systems reviewed negative except as stated in HPI Musculoskeletal Reports back pain PMFSH Surgical History Surgical History H/O elbow surgery (Acute) S/P surgical manipulation of ankle joint (Acute) Social History Social History Smoking Status: Heavy tobacco smoker Tobacco Type: Cigarettes How Often Do You Have a Drink Containing Alcohol: Never Recent Travel in [facility] within the Last 8 Weeks: No Recent Out of Country Travel within the Last 8 Weeks: No Exam Const General: healthy appearing, well developed and well hydrated Orientation: alert, awake and oriented x3 HENMT Head: normal to inspection and atraumatic Ears: hearing grossly normal bilaterally, TM normal on the right and TM normal on the left Nose: external nose normal Face and sinus: normal facial exam and face symmetric Mouth: oral mucosae normal and oropharynx normal Teeth and gingiva: dentition normal Throat: posterior oropharynx normal Eyes General: appearance normal, both eyes and all related structures Pupils: PERRL Neck Neck: normal visual inspection Chest Chest: normal inspection of the chest, normal palpation of entire chest wall and no tenderness Resp Effort & Inspection: normal respiratory effort Auscultation: clear to auscultation bilaterally Cardio Rate: regular rate Rhythm: regular rhythm GI Inspection: normal to inspection Palpation: soft Percussion: normal to percussion Back/Spine/Pelvis Back: back tenderness (No tenderness with percussion of his spinous processes) Cervical Spine: normal cervical lordosis Thoracic/Lumbar Spine: thoracic and lumbar spine normal to inspection Skin General: no rashes or lesions noted Trauma: no lacerations or abrasions Neuro General: alert, awake and oriented x3 Speech: speech normal Extrem General: normal to inspection and full ROM Psych Appearance: grossly normal Course Initial Documented Vital Signs Temperature 98.4 F 09/27/17 13:45 Pulse Rate 83 09/27/17 13:45 Respiratory Rate 16 09/27/17 13:45 Blood Pressure 117/65 09/27/17 13:45 Pulse Oximetry 100 09/27/17 13:45 Last Documented Vital Signs Temperature 98.4 F 09/27/17 13:45 Pulse Rate 78 09/28/17 00:15 Respiratory Rate 16 09/28/17 00:15 Blood Pressure 116/58 L 09/28/17 00:15 Pulse Oximetry 98 09/28/17 00:15 Medical Decision Making Lab Data Result diagrams: 09/27/17 21:40 09/27/17 21:40 Lab Results 09/27/17 09/27/17 09/27/17 Range/Units 21:40 21:40 21:40 WBC 11.3 H (4.0-11.0) th/mm3 RBC 4.95 (4.50-5.90) mil/mm3 Hgb 13.2 (13.0-17.0) gm/dL Hct 39.4 (39.0-51.0) % MCV 79.6 L (80.0-100.0) fL MCH 26.7 L (27.0-34.0) pg MCHC 33.5 (32.0-36.0) % RDW 15.2 (11.6-17.2) % Plt Count 387 (150-450) th/mm3 MPV 7.5 (7.0-11.0) fL Neut % (Auto) 78.9 H (16.0-70.0) % Lymph % (Auto) 14.4 (9.0-44.0) % Walton % (Auto) 5.9 (0.0-8.0) % Eos % (Auto) 0.5 (0.0-4.0) % Baso % (Auto) 0.3 (0.0-2.0) % Neut # (Auto) 8.9 H (1.8-7.7) th/mm3 Lymph # (Auto) 1.6 (1.0-4.8) th/mm3 Walton # (Auto) 0.7 (0.0-0.9) th/mm3 Eos # (Auto) 0.1 (0.0-0.4) th/mm3 Baso # (Auto) 0.0 (0.0-0.2) th/mm3 WBC Differential . Differential Comment Auto diff final ESR 15 (0-15) mm/hr Sodium 137 (136-145) meq/L Potassium 4.2 (3.5-5.1) meq/L Chloride 102 (98-107) meq/L Carbon Dioxide 27.2 (21.0-32.0) meq/L Anion Gap 8 (5-15) meq/L BUN 13 (7-18) mg/dL Creatinine 0.78 (0.60-1.30) mg/dL Estimated GFR Greater than 89 (>89) mL/min Random Glucose 91 (74-106) mg/dL Calcium 8.7 (8.5-10.1) mg/dL Total Bilirubin 0.4 (0.2-1.0) mg/dL AST 21 (15-37) U/L ALT 41 (12-78) U/L Alkaline Phosphatase 81 (45-117) U/L C-Reactive Protein (0.00-0.30) mg/dL Total Protein 9.0 H (6.4-8.2) g/dL Albumin 4.0 (3.4-5.0) g/dL 09/27/17 Range/Units 21:40 WBC (4.0-11.0) th/mm3 RBC (4.50-5.90) mil/mm3 Hgb (13.0-17.0) gm/dL Hct (39.0-51.0) % MCV (80.0-100.0) fL MCH (27.0-34.0) pg MCHC (32.0-36.0) % RDW (11.6-17.2) % Plt Count (150-450) th/mm3 MPV (7.0-11.0) fL Neut % (Auto) (16.0-70.0) % Lymph % (Auto) (9.0-44.0) % Walton % (Auto) (0.0-8.0) % Eos % (Auto) (0.0-4.0) % Baso % (Auto) (0.0-2.0) % Neut # (Auto) (1.8-7.7) th/mm3 Lymph # (Auto) (1.0-4.8) th/mm3 Walton # (Auto) (0.0-0.9) th/mm3 Eos # (Auto) (0.0-0.4) th/mm3 Baso # (Auto) (0.0-0.2) th/mm3 WBC Differential Differential Comment ESR (0-15) mm/hr Sodium (136-145) meq/L Potassium (3.5-5.1) meq/L Chloride (98-107) meq/L Carbon Dioxide (21.0-32.0) meq/L Anion Gap (5-15) meq/L BUN (7-18) mg/dL Creatinine (0.60-1.30) mg/dL Estimated GFR (>89) mL/min Random Glucose (74-106) mg/dL Calcium (8.5-10.1) mg/dL Total Bilirubin (0.2-1.0) mg/dL AST (15-37) U/L ALT (12-78) U/L Alkaline Phosphatase (45-117) U/L C-Reactive Protein 5.78 H (0.00-0.30) mg/dL Total Protein (6.4-8.2) g/dL Albumin (3.4-5.0) g/dL Imaging Data Radiologist's impression: ITS Impressions Thoracic Spine MRI 09/27/17 21:57 CONCLUSION: 1. Prominent edema and enhancement at T10 and to a lesser degree along the inferior anterior endplate of T9. This is more prominent when compared to previous study. 2. Central protrusion at T12-L1. Discharge Plan Discharge Disposition Patient Disposition: 30 Still Patient Discharge Details Diagnosis: Discitis Physicians Team ED Provider: Diogenes Handy Primary Care Provider: Primary Care Tanisha Bush Attending Provider: Abigail Levin Other Providers: Noa Cline ; Tip Hampton Discharge Interventions Interventions: Vital Signs Last Done: 09/28/17 00:15 Status ED Status: Admitted Patient
[2017-09-27 22:17] LABS: Baso % (Auto) 0.3 % (0.0-2.0); Eos # (Auto) 0.1 th/mm3 (0.0-0.4); Eos % (Auto) 0.5 % (0.0-4.0); Hematocrit 39.4 % (39.0-51.0); Hemoglobin 13.2 gm/dL (13.0-17.0); Lymph # (Auto) 1.6 th/mm3 (1.0-4.8); Lymph % (Auto) 14.4 % (9.0-44.0); Mean Corpuscular HGB Conc 33.5 % (32.0-36.0); Mean Corpuscular Hemoglobin 26.7 pg (27.0-34.0); Mean Corpuscular Volume 79.6 fL (80.0-100.0); Mean Platelet Volume 7.5 fL (7.0-11.0); Mono # (Auto) 0.7 th/mm3 (0.0-0.9); Mono % (Auto) 5.9 % (0.0-8.0); Neut # (Auto) 8.9 th/mm3 (1.8-7.7); Neut % (Auto) 78.9 % (16.0-70.0); Platelet Count 387 th/mm3 (150-450); Red Blood Count 4.95 mil/mm3 (4.50-5.90); Red Cell Distribution Width 15.2 % (11.6-17.2); White Blood Count 11.3 th/mm3 (4.0-11.0)
[2017-09-27 22:24] LABS: Alanine Aminotransferase 41 U/L (12-78); Anion Gap 8 meq/L (5-15); Aspartate Aminotransferase 21 U/L (15-37); Blood Urea Nitrogen 13 mg/dL (7-18); Calcium 8.7 mg/dL (8.5-10.1); Carbon Dioxide 27.2 meq/L (21.0-32.0); Chloride 102 meq/L (98-107); Glomerular Filtration Rate Greater Than 89 mL/min (>89); Glucose,Random 91 mg/dL (74-106); Potassium 4.2 meq/L (3.5-5.1); Sodium 137 meq/L (136-145)
[2017-09-27 22:27] LABS: Alkaline Phosphatase 81 U/L (45-117)
[2017-09-27] MEDS ORDERED: Gadobutrol PF 7.5 MMOL/7.5 ML Vial (for RAD) IV.SIG ONE (23:07)
--- NOTE | 2017-09-27 23:35 | MR ---
EXAM DATE: 09/27/2017 11:23 PM EDT AGE/SEX: 32 years / Male INDICATIONS: Abscess. Mid back pain. CLINICAL DATA: This is the patient's initial encounter. Patient reports that signs and symptoms have been present for 1 month and indicates a pain score of 7/10. MEDICAL/SURGICAL HISTORY: None. . Left leg sx, Right elbow sx. COMPARISON: [facility] [place], MRI THORACIC SPINE W/O CONTRAST, 09/04/2017. . TECHNIQUE: Multiplanar, multisequence MRI of the thoracic spine was performed without and with 7 ml Gadavist (gadobutrol) contrast as a single exam dose. FINDINGS: Vertebrae: Normal vertebral body height. Prominent amount of edema again seen throughout T10 vertebr al body. There is new edema along the inferior anterior endplate at T9. Alignment: Normal. Cord: Normal position and configuration. Post Contrast: There is abnormal areas of enhancement seen within T9 and T10 vertebral bodies. T1-T2: The thecal sac has a normal diameter. No evidence of disc bulge or protrusion. T2-T3: The thecal sac has a normal diameter. No evidence of disc bulge or protrusion. T3-T4: The thecal sac has a normal diameter. No evidence of disc bulge or protrusion. T4-T5: The thecal sac has a normal diameter. No evidence of disc bulge or protrusion. T5-T6: The thecal sac has a normal diameter. No evidence of disc bulge or protrusion. T6-T7: The thecal sac has a normal diameter. No evidence of disc bulge or protrusion. T7-T8: The thecal sac has a normal diameter. No evidence of disc bulge or protrusion. T8-T9: The thecal sac has a normal diameter. No evidence of disc bulge or protrusion. T9-T10: The thecal sac has a normal diameter. No evidence of disc bulge or protrusion. T10-T11: The thecal sac has a normal diameter. No evidence of disc bulge or protrusion. T11-T12: The thecal sac has a normal diameter. No evidence of disc bulge or protrusion. T12-L1: Small central protrusion abuts the ventral thecal sac without canal stenosis. CONCLUSION: 1. Prominent edema and enhancement at T10 and to a lesser degree along the inferior anterior endplat e of T9. This is more prominent when compared to previous study. 2. Central protrusion at T12-L1. Electronically signed by: Capo Estes MD 09/27/2017 11:33 PM EDT
[2017-09-28] MEDS ORDERED: Morphine Inj 4 MG/ML Vial IV.PUSH ONE (00:16)
[2017-09-28] MEDS ORDERED: Bisacodyl 10 MG Supp RECTAL PRN (00:43)
[2017-09-28] MEDS: Sod Chloride 0.9% Inj 1,000 ML IV.CONT SCH ×3 (00:54→21:10)
[2017-09-28] MEDS ORDERED: Vancomycin Consult Pharmacy 1 EACH OTHER SCH (01:00)
[2017-09-28] MEDS ORDERED: Vancomycin Inj 1,500 MG in Sodium Chlor 0.9% Inj 500 ML IV.SIG ONE (01:30)
--- NOTE | 2017-09-28 01:32 | P.HPIM ---
History of Present Illness Primary Care Physician: No Primary Care Physician History of Present Illness: This is a 32-year-old male with a PMH of IVDU, h/o MRSA and h/o Discitis who presented to the ER w/ c/o back pain. Previously admitted on 09/04/17 for similar symptoms, MRI T-spine 09/04/17 w/ bone marrow edema of T10 w/ mild compression fracture, CTA w/ T9-T10 soft tissue swelling concerning for Discitis. S/p eval by Dr. Santos and Dr. Kelly w/ ID, pt however LEFT AMA on 09/04/17. Seen at few days later for ongoing symptoms, however LEFT AMA again. Has not been on antibiotics since then. Continues to use IV drugs. Now w/ ongoing back pain, 12/26, constant, non-radiating, worse w/ movement. On arrival, BP 117/65, HR 83, O2 sat 100% on RA, Afebrile. WBC 11.3. Chemistry essentially unremarkable. CRP 5.78. S/p Nafcillin in ER. - Diagnosis (1) Discitis (2) IVDU (intravenous drug user) Inpatient Certification: I certify that the inpatient services were ordered in accordance with Medicare regulations governing the order. This includes certification that hospital inpatient services are reasonable and necessary and in the case of services not specified as inpatient-only under 42 CFR 419.22(n), that they are appropriately provided as inpatient services in accordance to with the 2-midnight benchmark under 43 CFR 412.3(e) Estimated Total Length of Stay (Days): 2 Plans for Post Hospital Care: Not yet determined Review of Systems All other systems reviewed negative except as stated in HPI PMFSH - History History Provided By: Patient - Surgical History Surgical History: Surgical History (Last Reviewed 09/28/17 @ 00:46 by Diogenes Handy) H/O elbow surgery S/P surgical manipulation of ankle joint - Tobacco History Tobacco Use In Past 30 Days: Yes Smoking Status: Heavy tobacco smoker Tobacco Type: Cigarettes - Alcohol History How Often Do You Have a Drink Containing Alcohol: Never - Travel History Recent Travel in the [place] Within the Last 8 Weeks: No Recent Travel Out of the Country Within the Last 8 Weeks: No - Immunization History Tetanus Immunization: Unsure Hx Influenza Vaccine This Season: No Medications and Allergies Active Medications: Active Medications Hydrocodone Bitart/Acetaminophen ([place] 5/325) 1 tab PO Q4H PRN PRN Reason: PAIN 3-5 Al Hydroxide/Mg Hydroxide (Milk Of Magnesia Liq) 30 ml PO Q12H PRN PRN Reason: Mild Constipation Bisacodyl (Dulcolax Supp) 10 mg RECTAL DAILY PRN PRN Reason: SEVERE CONSITIPATION Cefepime HCl 1,000 mg/ Sodium (Chloride) 100 mls @ 200 mls/hr IV.SIG Q12H [facility] Sodium Chloride (Ns Inj) 1,000 mls @ 100 mls/hr IV.CONT .Q10H [facility] Last Admin: 09/28/17 00:54 Dose: 100 mls/hr Pharmacy Profile Note (Vancomycin Consult Pharmacy) 0 mls @ 0 mls/hr OTHER UNSCH [facility] Vancomycin HCl 1,500 mg/ (Sodium Chloride) 530 mls @ 265 mls/hr IV.SIG ONCE ONE Stop: 09/28/17 03:29 Lactulose (Lactulose Liq) 30 ml PO DAILY PRN PRN Reason: SEVERE CONSITIPATION Lorazepam (Ativan Inj) 1 mg IV.PUSH Q2H PRN PRN Reason: WITHDRAWAL/AGITATION Metoclopramide HCl (Reglan Inj) 5 mg IV.PUSH Q6HR PRN; Protocol PRN Reason: NAUSEA OR VOMITING Morphine Sulfate (Morphine Inj) 2 mg IV.PUSH Q4H PRN PRN Reason: PAIN SCALE 6 TO 10 Senna/Docusate Sodium (Nallely-Colace) 1 tab PO BID [facility] Sennosides (Senokot) 17.2 mg PO Q12H PRN PRN Reason: Moderate Constipation Allergies Allergy/AdvReac Type Severity Reaction Status Date / Time *MDRO Multi-Drug Resistant AdvReac Unknown Uncoded 09/03/17 21:10 Organism Home Medications Medication Instructions Recorded Confirmed Type No Known Home Medications 09/28/17 09/28/17 History Exam Vital signs: Vital Signs 09/27/17 13:45 09/28/17 00:15 Temperature 98.4 F Pulse Rate 83 78 Respiratory Rate 16 16 Blood Pressure 117/65 116/58 L Pulse Oximetry 100 98 Intake & Output 09/27/17 09/27/17 09/28/17 06:59 18:59 06:59 Weight 68.039 kg Narrative: PE: GENERAL: Young white male in no acute distress. Significant other at bedside. HEENT: PERRLA, EOMI. No scleral icterus or conjunctival pallor. No lid lag or facial droop. CARDIOVASCULAR: Regular rate and rhythm. No obvious murmurs to auscultation. No chest tenderness to palpation. RESPIRATORY: No obvious rhonchi or wheezing. Clear to auscultation. Breath sounds equal bilaterally. GASTROINTESTINAL: Abdomen soft, non-tender, nondistended. BS normal. MUSCULOSKELETAL: Extremities without clubbing, cyanosis, or edema. No obvious deformities. NEUROLOGICAL: Awake, alert and oriented x4. No focal neurologic deficits. Moving both upper and lower extremities spontaneously. Results - Labs CBC & Chem 7: 09/27/17 21:40 09/27/17 21:40 Labs: Short CBC 09/27/17 Range/Units 21:40 WBC 11.3 H (4.0-11.0) th/mm3 Hgb 13.2 (13.0-17.0) gm/dL Hct 39.4 (39.0-51.0) % Plt Count 387 (150-450) th/mm3 BMP 09/27/17 21:40 Sodium 137 Potassium 4.2 Chloride 102 Carbon Dioxide 27.2 BUN 13 Creatinine 0.78 Calcium 8.7 Liver Function 09/27/17 Range/Units 21:40 Total Bilirubin 0.4 (0.2-1.0) mg/dL AST 21 (15-37) U/L ALT 41 (12-78) U/L Alkaline Phosphatase 81 (45-117) U/L Albumin 4.0 (3.4-5.0) g/dL - Imaging Impressions Thoracic Spine MRI 09/27/17 21:57 CONCLUSION: 1. Prominent edema and enhancement at T10 and to a lesser degree along the inferior anterior endplate of T9. This is more prominent when compared to previous study. 2. Central protrusion at T12-L1. Caprini VTE Risk Assessment Caprini VTE Risk Assessment: No/Low Risk (score <= 1) Caprini Risk Assessment Model: Point Value = 1 Point Value = 2 Point Value = 3 Point Value = 5 Age 41-60 Minor surgery BMI > 25 kg/m2 Swollen legs Varicose veins or History of unexplained or recurrent spontaneous Oral contraceptives or hormone replacement Sepsis (< 1 month) Serious lung disease, including pneumonia (< 1 month) Abnormal pulmonary function Acute myocardial infarction Congestive heart failure (< 1 month) History of inflammatory bowel disease Medical patient at bed rest Age 61-74 Arthroscopic surgery Major open surgery (> 45 min) Laparoscopic surgery (> 45 min) Malignancy Confined to bed (> 72 hours) Immobilizing plaster cast Central venous access Age >= 75 History of VTE Family history of VTE Factor V Leiden Prothrombin [id number] Lupus anticoagulant Anticardiolipin antibodies Elevated serum homocysteine Heparin-induced thrombocytopenia Other congenital or acquired thrombophilia Stroke (< 1 month) Elective arthroplasty Hip, pelvis, or leg fracture Acute spinal cord injury (< 1 month) Prophylaxis Regimen: Total Risk Factor Score Risk Level Prophylaxis Regimen 0-1 Low Early ambulation 2 Moderate Order ONE of the following: *Sequential Compression Device (SCD) *Heparin 5000 units SQ BID 3-4 Higher Order ONE of the following medications: *Heparin 5000 units SQ TID *Enoxaparin/Lovenox 40 mg SQ daily (WT < 150 kg, CrCl > 30 mL/min) *Enoxaparin/Lovenox 30 mg SQ daily (WT < 150 kg, CrCl > 10-29 mL/min) *Enoxaparin/Lovenox 30 mg SQ BID (WT < 150 kg, CrCl > 30 mL/min) AND/OR *Sequential Compression Device (SCD) 5 or more Highest Order ONE of the following medications: *Heparin 5000 units SQ TID (Preferred with Epidurals) *Enoxaparin/Lovenox 40 mg SQ daily (WT < 150 kg, CrCl > 30 mL/min) *Enoxaparin/Lovenox 30 mg SQ daily (WT < 150 kg, CrCl > 10-29 mL/min) *Enoxaparin/Lovenox 30 mg SQ BID (WT < 150 kg, CrCl > 30 mL/min) AND *Sequential Compression Device (SCD) Assessment and Plan - Assessment (1) Discitis Code(s): M46.40 - Discitis, unspecified, site unspecified Status: Acute (2) IVDU (intravenous drug user) Code(s): F19.90 - Other psychoactive substance use, unspecified, uncomplicated Status: Acute - Plan A/P: 1. Discitis: h/o Discitis w/ previous admit 09/04/17, however LEFT AMA prior to work up, MRI T-Spine today w/ prominent edema T9-T10, increased from previous study. Consult NxSx for eval/possible biopsy, Consult ID, follow up cultures, IV Abx to cover MRSA in light of previous history. Repeat labs in am. 2. IVDU: Admits to ongoing use, Ativan prn for withdrawal. 3. DVT Prophylaxis: SCD/Teds 4. Social work for d/c planning as needed 5. Case discussed w/ ER physician at length, labs/records/imaging reviewed by me.
[2017-09-28] MEDS: Senna/Docusate Sodium 8.6/50 MG Tablet PO SCH ×2 (09:15→21:09)
[2017-09-28] MEDS: Morphine Inj 4 MG/ML Vial IV.PUSH PRN ×2 (11:15→23:08)
[2017-09-28] MEDS: Vancomycin Inj 1,000 MG in Sodium Chlor 0.9% Inj 250 ML IV.SIG SCH ×2 (15:48→21:09)
--- NOTE | 2017-09-28 21:01 | P.CONID ---
History of Present Illness Service: ID Consult date: 09/29/17 Requesting Physician: Paul Leon Reason for Consult: Evaluation and Mment of discitis Primary Care Provider: No Primary Care Physician Family Provider: No Primary Care Physician History of Present Illness: is a 32y/o CM with with a PMH of IVDU, h/o MRSA and h/o Discitis who presented to the ER w/ c/o back pain. Previously admitted on 09/04/17 for similar symptoms, MRI T-spine 09/04/17 w/ bone marrow edema of T10 w/ mild compression fracture, CTA w/ T9-T10 soft tissue swelling concerning for Discitis. S/p eval by Dr. Santos and Dr. Mason w/ ID, pt however LEFT AMA on . Seen at few days later for ongoing symptoms, however LEFT AMA again. Has not been on antibiotics since then. Continues to use IV drugs. Now w/ ongoing back pain, 10/10, constant, non-radiating, worse w/ movement. On arrival, BP 117/65, HR 83, O2 sat 100% on RA, Afebrile. WBC 11.3. Chemistry essentially unremarkable. CRP 5.78. S/p Nafcillin in ER. Denies fevers, chills, night sweats. Not on antibiotics prior to admission. Sb Neurosurgery plan for CT guided biopsy. Clinically stable moving around in the room. ID consulted for evaluation and Mment of discitis. Review of Systems All other systems reviewed negative except as stated in HPI PMFSH - History History Provided By: Patient - Surgical History Surgical History: Surgical History (Last Reviewed 09/28/17 @ 00:46 by Diogenes Handy) H/O elbow surgery S/P surgical manipulation of ankle joint - Tobacco History Second Hand Smoke Exposure: Yes Tobacco Use In Past 30 Days: Yes Smoking Status: Current every day smoker Tobacco Type: Cigarettes - Alcohol History How Often Do You Have a Drink Containing Alcohol: Never - Substance Use History Substance History: No History of Abuse - Travel History Recent Travel in the [place] Within the Last 8 Weeks: No Recent Travel Out of the Country Within the Last 8 Weeks: No - Immunization History Tetanus Immunization: Unsure Hx Influenza Vaccine This Season: No Medications and Allergies Active Medications: Active Medications Hydrocodone Bitart/Acetaminophen ([place] 5/325) 1 tab PO Q4H PRN PRN Reason: PAIN 3-5 Last Admin: 09/28/17 16:13 Dose: 1 tab Al Hydroxide/Mg Hydroxide (Milk Of Magnesia Liq) 30 ml PO Q12H PRN PRN Reason: Mild Constipation Bisacodyl (Dulcolax Supp) 10 mg RECTAL DAILY PRN PRN Reason: SEVERE CONSITIPATION Cefepime HCl 1,000 mg/ Sodium (Chloride) 100 mls @ 200 mls/hr IV.SIG Q12H [facility] Last Infusion: 09/28/17 10:18 Dose: Infused Sodium Chloride (Ns Inj) 1,000 mls @ 100 mls/hr IV.CONT .Q10H [facility] Last Admin: 09/28/17 11:11 Dose: 100 mls/hr Pharmacy Profile Note (Vancomycin Consult Pharmacy) 0 mls @ 0 mls/hr OTHER UNSCH [facility] Vancomycin HCl 1,000 mg/ (Sodium Chloride) 250 mls @ 250 mls/hr IV.SIG Q8H [facility] Last Infusion: 09/28/17 16:48 Dose: Infused Lactulose (Lactulose Liq) 30 ml PO DAILY PRN PRN Reason: SEVERE CONSITIPATION Lorazepam (Ativan Inj) 1 mg IV.PUSH Q2H PRN PRN Reason: WITHDRAWAL/AGITATION Last Admin: 09/28/17 13:27 Dose: 1 mg Metoclopramide HCl (Reglan Inj) 5 mg IV.PUSH Q6HR PRN; Protocol PRN Reason: NAUSEA OR VOMITING Miscellaneous Information ([facility] Ordered Lab Info) 0 each OTHER ONCE ONE Stop: 09/29/17 13:46 Morphine Sulfate (Morphine Inj) 2 mg IV.PUSH Q4H PRN PRN Reason: PAIN SCALE 6 TO 10 Last Admin: 09/28/17 11:15 Dose: 2 mg Nicotine (Habitrol 21 Mg Patch.24 Hr) 1 patch T-DERMAL DAILY [facility] Last Admin: 09/28/17 16:08 Dose: 1 patch Patch Removal (Remove Old Patch) 1 each T-DERMAL DAILY [facility] Last Admin: 09/28/17 16:09 Dose: Not Given Senna/Docusate Sodium (Nallely-Colace) 1 tab PO BID [facility] Last Admin: 09/28/17 09:15 Dose: 1 tab Sennosides (Senokot) 17.2 mg PO Q12H PRN PRN Reason: Moderate Constipation Allergies Allergy/AdvReac Type Severity Reaction Status Date / Time *MDRO Multi-Drug Resistant AdvReac Unknown Uncoded 09/03/17 21:10 Organism Home Medications Medication Instructions Recorded Confirmed Type No Known Home Medications 09/28/17 09/28/17 History Exam Vital signs: Vital Signs 09/28/17 00:15 09/28/17 04:00 09/28/17 08:00 Temperature 98.7 F 98.8 F Pulse Rate 78 71 73 Respiratory Rate 16 20 16 Blood Pressure 116/58 L 116/55 L 101/53 L Pulse Oximetry 98 100 100 09/28/17 09:45 09/28/17 12:00 09/28/17 18:00 Temperature 99.4 F 98.2 F Pulse Rate 87 89 Respiratory Rate 18 16 20 Blood Pressure 125/71 113/64 Pulse Oximetry 100 99 Intake & Output 09/28/17 09/28/17 09/29/17 06:59 18:59 06:59 Intake Total 2480 / 2480 Output Total 300 / 300 Balance 2180 / 2180 Weight 68.4 kg Intake: IV 1979 NS Inj 1,000 ML @ 100 mls/hr IV 1000 / 1000 .CONT .Q10H [facility] Rx#:[id number] Maxipime Inj 1,000 MG In NS Inj 100 / 100 100 ML @ 200 mls/hr IV.SIG Q12H [facility] Rx#:[id number] Vancomycin Inj 1,000 MG In NS 250 / 250 Inj 250 ML @ 250 mls/hr IV.SIG Q8H [facility] Rx#:[id number] Vancomycin Inj 1,500 MG In NS 530 / 530 Inj 500 ML @ 265 mls/hr IV.SIG ONCE ONE Rx#:[id number] Oral 500 / 500 Output: Urine 300 / 300 Other: # Bowel Movements 0 Weight On Admission 68.4 kg - Constitutional no acute distress - Routine HEENT Exam Head: Present: normocephalic, atraumatic ENT: Present: mucous membranes moist - Routine Neck Exam Present: supple, full ROM - Routine Chest/Breast/Axilla Exam Chest wall: Absent: tenderness Breast: Absent: tenderness Axillae: Absent: lymphadenopathy - Routine Respiratory Exam Present: CTA bilaterally - Routine Abdominal Exam Present: soft, normoactive bowel sounds. Absent: tenderness - Routine Extremities Exam Absent: edema - Routine Skin Exam Present: intact - Routine Neurological Exam Present: alert, oriented X3, normal speech. Absent: motor deficit, abnormal gait - Routine Psychiatric Exam Present: normal affect Results - Labs CBC & Chem 7: 09/27/17 21:40 09/27/17 21:40 Labs: Laboratory Results - last 24 hr 09/27/17 09/27/17 09/27/17 21:40 21:40 21:40 WBC 11.3 H RBC 4.95 Hgb 13.2 Hct 39.4 MCV 79.6 L MCH 26.7 L MCHC 33.5 RDW 15.2 Plt Count 387 MPV 7.5 Neut % (Auto) 78.9 H Lymph % (Auto) 14.4 [place] % (Auto) 5.9 Eos % (Auto) 0.5 Baso % (Auto) 0.3 Neut # (Auto) 8.9 H Lymph # (Auto) 1.6 [place] # (Auto) 0.7 Eos # (Auto) 0.1 Baso # (Auto) 0.0 WBC Differential . Differential Comment Auto diff final ESR 15 Sodium 137 Potassium 4.2 Chloride 102 Carbon Dioxide 27.2 Anion Gap 8 BUN 13 Creatinine 0.78 Estimated GFR Greater than 89 Random Glucose 91 Calcium 8.7 Total Bilirubin 0.4 AST 21 ALT 41 Alkaline Phosphatase 81 C-Reactive Protein Total Protein 9.0 H Albumin 4.0 09/27/17 21:40 WBC RBC Hgb Hct MCV MCH MCHC RDW Plt Count MPV Neut % (Auto) Lymph % (Auto) [place] % (Auto) Eos % (Auto) Baso % (Auto) Neut # (Auto) Lymph # (Auto) [place] # (Auto) Eos # (Auto) Baso # (Auto) WBC Differential Differential Comment ESR Sodium Potassium Chloride Carbon Dioxide Anion Gap BUN Creatinine Estimated GFR Random Glucose Calcium Total Bilirubin AST ALT Alkaline Phosphatase C-Reactive Protein 5.78 H Total Protein Albumin - Imaging Impressions Thoracic Spine MRI 09/27/17 21:57 CONCLUSION: 1. Prominent edema and enhancement at T10 and to a lesser degree along the inferior anterior endplate of T9. This is more prominent when compared to previous study. 2. Central protrusion at T12-L1. Assessment and Plan - Plan Discitis. Prior h/o MRSA hand infections with MSSA and Strep. IVDA Recs Discontinue Antibiotics until after the CT guided biopsy since clinically stable. Presenting symptom was back pain, no neuro deficit and not septic. CT guided biopsy please ask for Micro and path when IR consult placed. reviewed note. to resume care on 10/01/17. covering this weekend.
--- NOTE | 2017-09-29 01:30 | P.CONNS ---
History of Present Illness Service: neurosurgery Consult date: 09/29/17 Reason for Consult: Thoracic discitis Primary Care Provider: No Primary Care Physician Family Provider: No Primary Care Physician Chief Complaint: Back pain History of Present Illness: 32-year-old male previously presented to [facility] emergency room 2017 with complaint of several days of progressive mid to lower thoracic region pain. At that time he gave a positive history of IV drug abuse, last use approximately 6-8 weeks prior to presentation. His neurologic exam was intact. He underwent a CT angiogram negative for pulmonary embolus but questionable for possible T9-10 discitis. WBC elevated at 13,000. Seen by infectious disease. Patient was scheduled for MRI scan but left AGAINST MEDICAL ADVICE prior to completion of the study. He presents back to the emergency room 09/28/2017 with complaint of fevers, chills, increased back pain. No lower extremity pain weakness or numbness. PMF - History History Provided By: Patient - Medical History Medical History: Medical History (Last Reviewed 11/10/17 @ 12:57 by CHRISTIANO Soto) IV drug user - Surgical History Surgical History: Surgical History (Last Reviewed 11/10/17 @ 12:57 by CHRISTIANO Soto) H/O elbow surgery S/P surgical manipulation of ankle joint - Tobacco History Second Hand Smoke Exposure: Yes Tobacco Use In Past 30 Days: Yes Smoking Status: Current every day smoker Tobacco Type: Cigarettes - Alcohol History How Often Do You Have a Drink Containing Alcohol: Never - Substance Use History Substance History: No History of Abuse - Travel History Recent Travel in the [place] Within the Last 8 Weeks: No Recent Travel Out of the Country Within the Last 8 Weeks: No - Immunization History Tetanus Immunization: Unsure Hx Influenza Vaccine This Season: No Medications and Allergies Active Medications: Active Medications Hydrocodone Bitart/Acetaminophen ([place] 5/325) 1 tab PO Q4H PRN PRN Reason: PAIN 3-5 Last Admin: 09/28/17 21:09 Dose: 1 tab Al Hydroxide/Mg Hydroxide (Milk Of Magnesia Liq) 30 ml PO Q12H PRN PRN Reason: Mild Constipation Bisacodyl (Dulcolax Supp) 10 mg RECTAL DAILY PRN PRN Reason: SEVERE CONSITIPATION Cefepime HCl 1,000 mg/ Sodium (Chloride) 100 mls @ 200 mls/hr IV.SIG Q12H [facility] Last Infusion: 09/28/17 23:17 Dose: Infused Sodium Chloride (Ns Inj) 1,000 mls @ 100 mls/hr IV.CONT .Q10H [facility] Last Infusion: 09/28/17 23:18 Dose: Infused Pharmacy Profile Note (Vancomycin Consult Pharmacy) 0 mls @ 0 mls/hr OTHER UNSCH [facility] Vancomycin HCl 1,000 mg/ (Sodium Chloride) 250 mls @ 250 mls/hr IV.SIG Q8H [facility] Last Infusion: 09/28/17 23:10 Dose: Infused Lactulose (Lactulose Liq) 30 ml PO DAILY PRN PRN Reason: SEVERE CONSITIPATION Lorazepam (Ativan Inj) 1 mg IV.PUSH Q2H PRN PRN Reason: WITHDRAWAL/AGITATION Last Admin: 09/28/17 13:27 Dose: 1 mg Metoclopramide HCl (Reglan Inj) 5 mg IV.PUSH Q6HR PRN; Protocol PRN Reason: NAUSEA OR VOMITING Miscellaneous Information ([facility] Ordered Lab Info) 0 each OTHER ONCE ONE Stop: 09/29/17 13:46 Morphine Sulfate (Morphine Inj) 2 mg IV.PUSH Q4H PRN PRN Reason: PAIN SCALE 6 TO 10 Last Admin: 09/28/17 23:08 Dose: 2 mg Nicotine (Habitrol 21 Mg Patch.24 Hr) 1 patch T-DERMAL DAILY [facility] Last Admin: 09/28/17 16:08 Dose: 1 patch Patch Removal (Remove Old Patch) 1 each T-DERMAL DAILY [facility] Last Admin: 09/28/17 16:09 Dose: Not Given Senna/Docusate Sodium (Nallely-Colace) 1 tab PO BID [facility] Last Admin: 09/28/17 21:09 Dose: 1 tab Sennosides (Senokot) 17.2 mg PO Q12H PRN PRN Reason: Moderate Constipation Allergies Allergy/AdvReac Type Severity Reaction Status Date / Time No Known Allergies Allergy Verified 11/10/17 12:23 Exam Vital signs: Vital Signs 09/28/17 04:00 09/28/17 08:00 09/28/17 09:45 Temperature 98.7 F 98.8 F Pulse Rate 71 73 Respiratory Rate 20 16 18 Blood Pressure 116/55 L 101/53 L Pulse Oximetry 100 100 09/28/17 12:00 09/28/17 18:00 09/28/17 23:10 Temperature 99.4 F 98.2 F Pulse Rate 87 89 Respiratory Rate 16 20 6 L Blood Pressure 125/71 113/64 Pulse Oximetry 100 99 Intake & Output 09/28/17 09/28/17 09/29/17 06:59 18:59 06:59 Intake Total 2480 / 2480 2350 / 2350 Output Total 300 / 300 Balance 2180 / 2180 2350 / 2350 Weight 68.4 kg Intake: IV 1979 / 1979 2350 / 2350 NS Inj 1,000 ML @ 100 mls/hr IV 1000 / 1000 1999 / 1999 .CONT .Q10H [facility] Rx#:[id number] Maxipime Inj 1,000 MG In NS Inj 100 / 100 100 / 100 100 ML @ 200 mls/hr IV.SIG Q12H [facility] Rx#:[id number] Vancomycin Inj 1,000 MG In NS 250 / 250 250 / 250 Inj 250 ML @ 250 mls/hr IV.SIG Q8H [facility] Rx#:[id number] Vancomycin Inj 1,500 MG In NS 530 / 530 Inj 500 ML @ 265 mls/hr IV.SIG ONCE ONE Rx#:[id number] Oral 500 / 500 Output: Urine 300 / 300 Other: # Bowel Movements 0 Weight On Admission 68.4 kg Narrative: upper and lower extremity sensory light touch and motor WNL Results - Laboratory Findings CBC and BMP: 09/27/17 21:40 09/27/17 21:40 Abnormal lab findings: Abnormal Labs 09/27/17 09/27/17 09/27/17 21:40 21:40 21:40 WBC 11.3 H MCV 79.6 L MCH 26.7 L Neut % (Auto) 78.9 H Neut # (Auto) 8.9 H C-Reactive Protein 5.78 H Total Protein 9.0 H Assessment and Plan - Assessment (1) Thoracic discitis Code(s): M46.44 - Discitis, unspecified, thoracic region Status: Acute - Plan Impression: Thoracic discitis, T9-10 Plan: CT guided Bx T9-10
[2017-09-29] MEDS: Morphine Inj 4 MG/ML Vial IV.PUSH PRN ×2 (03:45→09:30)
[2017-09-29] MEDS: Vancomycin Inj 1,000 MG in Sodium Chlor 0.9% Inj 250 ML IV.SIG SCH (06:51)
[2017-09-29] MEDS: Sod Chloride 0.9% Inj 1,000 ML IV.CONT SCH (06:52)
[2017-09-29] MEDS: Senna/Docusate Sodium 8.6/50 MG Tablet PO SCH (09:00)
--- NOTE | 2017-09-29 14:29 | P.PN ---
Subjective Interval history: no complains afebrile up and ambulating no back pain, no incontinence voiding well good po no consitpation Physical Exam Vital signs: Vital Signs 09/28/17 18:00 09/28/17 20:00 09/28/17 23:10 Temperature 98.2 F 97.8 F Pulse Rate 89 94 H Respiratory Rate 20 18 6 L Blood Pressure 113/64 153/77 H Pulse Oximetry 99 99 09/29/17 00:00 09/29/17 04:00 09/29/17 08:00 Temperature 78.1 F L 98.6 F 98.6 F Pulse Rate 88 78 78 Respiratory Rate 18 16 20 Blood Pressure 122/62 117/62 111/58 L Pulse Oximetry 100 99 100 Intake & Output 09/28/17 09/29/17 09/29/17 18:59 06:59 18:59 Intake Total 2480 / 2480 2830 / 2830 100 / 100 Output Total 300 / 300 Balance 2180 / 2180 2830 / 2830 100 / 100 Weight 68.4 kg 63.2 kg Intake: IV 1979 / 1979 2350 / 2350 100 / 100 NS Inj 1,000 ML @ 100 mls/hr IV 1000 / 1000 2000 / 2000 .CONT .Q10H GORDY Rx#:[id number] Maxipime Inj 1,000 MG In NS Inj 100 / 100 100 / 100 100 / 100 100 ML @ 200 mls/hr IV.SIG Q12H GORDY Rx#:[id number] Vancomycin Inj 1,000 MG In NS 250 / 250 250 / 250 Inj 250 ML @ 250 mls/hr IV.SIG Q8H GORDY Rx#:[id number] Vancomycin Inj 1,500 MG In NS 530 / 530 Inj 500 ML @ 265 mls/hr IV.SIG ONCE ONE Rx#:[id number] Oral 500 / 500 480 / 480 Output: Urine 300 / 300 Other: # Voids 7 # Bowel Movements 0 1 Weight On Admission 68.4 kg Narrative: awake and alert, no acute distress anicteric no nuchal rigidity lungs- clear regular rhtyhm abdomen soft, nontender back- no point tenderness- spines extremiteis no edema, no weakness, intact sensory gait steady skin- intact Results - Labs CBC & Chem 7: 09/27/17 21:40 09/27/17 21:40 Microbiology 09/27/17 21:35 Blood - Peripheral Aerobic Blood Culture - Preliminary No growth in 2 days 09/27/17 21:35 Blood - Peripheral Anaerobic Blood Culture - Preliminary No growth in 2 days 09/27/17 21:40 Blood - Peripheral Aerobic Blood Culture - Preliminary No growth in 2 days 09/27/17 21:40 Blood - Peripheral Anaerobic Blood Culture - Preliminary No growth in 2 days Assessment and Plan - Assessment (1) Discitis Code(s): M46.40 - Discitis, unspecified, site unspecified Status: Acute (2) IVDU (intravenous drug user) Code(s): F19.90 - Other psychoactive substance use, unspecified, uncomplicated Status: Acute - Plan 32 years old male Discitis: t9-10 h/o Discitis w/ previous admit 09/04/17, however LEFT AMA prior to work up, MRI T-Spine today w/ prominent edema T9-T10, increased from previous study. - plan for CT guided biopsy- Sunday - follow up cultures, - Neurosurgery and ID ff - DC all antibiotics till biopsy done as Per ID recommendation IVDU: Admits to ongoing use, Ativan prn for withdrawal. DVT Prophylaxis: SCD/Teds Social work for d/c planning as needed Case discussed with patient- regarding signing out- "I won't" (1) Discitis Qualifiers: Spinal region: thoracolumbar Qualified Code(s): M46.45 - Discitis, unspecified, thoracolumbar region
[2017-09-29] MEDS ORDERED: Morphine Inj 4 MG/ML Vial IV.PUSH PRN (14:39)
[2017-09-29] MEDS ORDERED: Pharmacy Ordered Lab Info OTHER ONE (17:45)
[2017-09-29] MEDS ORDERED: Vancomycin Inj 1,000 MG in Sodium Chlor 0.9% Inj 250 ML IV.SIG SCH (18:00)
== END 2017-09-29 20:52 | disposition left against medical advice (07) ==
LOC: NEPE 13:14 → NEDA 09-28 00:45 → NEDH 09-28 03:52 → N04 09-28 14:54
PROVIDERS: ADMIT Internal Medicine; ATTEND Internal Medicine

== ENCOUNTER 2017-09-30 10:39 | Observation (INO) ==
[2017-09-30] MEDS ORDERED: Vancomycin Inj 1,000 MG in Sodium Chlor 0.9% Inj 250 ML IV.SIG ONE (12:16)
[2017-09-30] MEDS ORDERED: Piperacil/Tazo 4.5 GM Premix 4.5 GM/100 ML BAG IV.SIG ONE (12:16)
--- NOTE | 2017-09-30 12:19 | ED ---
HPI General Chief complaint: Medical Clearance Stated complaint: Med refill Time Seen by Provider: 09/30/17 12:10 History of Present Illness HPI narrative: Patient 32-year-old male IV drug abuser presents emergency department for readmittance to the hospital after being diagnosed with discitis last night. From review of the records appears the patient has been diagnosed with infection his low back approximately a month ago, he signed out AMA from here, went to [facility] signed out AMA from there, return to the ER last night had an MRI which showed increasing edema about T10, was diagnosed with discitis put on IV antibiotics and admitted to the hospital. The patient signed out AMA and he states that it was because we would not let his girlfriend visit him. The patient is here to be readmitted to the hospital. He has no new complaints of weakness no numbness or tingling, only complains of pain in his low back. Related Data Home Medications Medication Instructions Recorded Confirmed No Known Home Medications 09/28/17 09/28/17 Allergies Allergy/AdvReac Type Severity Reaction Status Date / Time *MDRO Multi-Drug Resistant AdvReac Unknown Uncoded 09/03/17 21:10 Organism Review of Systems Except as stated in HPI: all other systems reviewed are negative PMFSH Social History Social History Substance History: Active Abuse Second Hand Smoke Exposure: Yes Smoking Status: Current every day smoker Tobacco Type: Cigarettes How Often Do You Have a Drink Containing Alcohol: Never Recent Travel in [facility] within the Last 8 Weeks: No Recent Out of Country Travel within the Last 8 Weeks: No Exam Narrative Exam Narrative: GENERAL: Well-nourished, well-developed patient. Nontoxic appearance SKIN: Focused skin assessment warm/dry. No obvious abscess seen on his person. HEAD: Normocephalic. EYES: No scleral icterus. No injection or drainage. NECK: Supple, trachea midline. No JVD or lymphadenopathy. CARDIOVASCULAR: Regular rate and rhythm without murmurs, gallops, or rubs. RESPIRATORY: Breath sounds equal bilaterally. No accessory muscle use. GASTROINTESTINAL: Abdomen soft, non-tender, nondistended. MUSCULOSKELETAL: No cyanosis, or edema. Neurologic: Ambulate with an even narrow-base gait, no obvious weakness, no obvious cranial nerve deficit BACK: Nontender without obvious deformity. No CVA tenderness. Course Initial Documented Vital Signs Temperature 98.5 F 09/30/17 11:17 Pulse Rate 102 H 09/30/17 11:17 Respiratory Rate 18 09/30/17 11:17 Blood Pressure 141/71 H 09/30/17 11:17 Pulse Oximetry 100 09/30/17 11:17 Last Documented Vital Signs Temperature 98.7 F 10/01/17 08:00 Pulse Rate 65 10/01/17 08:00 Respiratory Rate 20 10/01/17 08:00 Blood Pressure 125/55 L 10/01/17 08:00 Pulse Oximetry 100 10/01/17 08:00 Medical Decision Making MDM Narrative Medical decision making narrative: Patient room to the emergency department, I discussed with him that he is taking his life and of his own hands, he could end up or permanently disabled possibly been paraplegic if he continues to sign out AMA. He lowered his head and verbalized understanding and agreement and would stay in the hospital this time, a dose of vancomycin and Zosyn was given to this patient. Discussed at length that he needs to stop using IV drugs. Ultimately discussed with [facility] for admission peer Differential Diagnosis Differential Diagnosis: Discitis, osteomyelitis, epidural abscess Lab Data Result diagrams: 09/30/17 15:30 09/30/17 15:30 Lab Results 09/30/17 09/30/17 09/30/17 Range/Units 15:30 15:30 15:30 WBC 7.5 (4.0-11.0) th/mm3 RBC 4.36 L (4.50-5.90) mil/mm3 Hgb 11.4 L (13.0-17.0) gm/dL Hct 34.5 L (39.0-51.0) % MCV 79.3 L (80.0-100.0) fL MCH 26.3 L (27.0-34.0) pg MCHC 33.1 (32.0-36.0) % RDW 15.0 (11.6-17.2) % Plt Count 337 (150-450) th/mm3 MPV 7.2 (7.0-11.0) fL Neut % (Auto) 63.9 (16.0-70.0) % Lymph % (Auto) 24.7 (9.0-44.0) % [place] % (Auto) 8.7 H (0.0-8.0) % Eos % (Auto) 2.4 (0.0-4.0) % Baso % (Auto) 0.3 (0.0-2.0) % Neut # (Auto) 4.8 (1.8-7.7) th/mm3 Lymph # (Auto) 1.8 (1.0-4.8) th/mm3 [place] # (Auto) 0.7 (0.0-0.9) th/mm3 Eos # (Auto) 0.2 (0.0-0.4) th/mm3 Baso # (Auto) 0.0 (0.0-0.2) th/mm3 WBC Differential . Differential Comment Auto diff final Sodium 141 (136-145) meq/L Potassium 4.3 (3.5-5.1) meq/L Chloride 105 (98-107) meq/L Carbon Dioxide 30.6 (21.0-32.0) meq/L Anion Gap 5 (5-15) meq/L BUN 11 (7-18) mg/dL Creatinine 0.69 (0.60-1.30) mg/dL Estimated GFR Greater than 89 (>89) mL/min Random Glucose 85 (74-106) mg/dL Lactic Acid 0.7 (0.4-2.0) mmol/L Calcium 8.7 (8.5-10.1) mg/dL Total Bilirubin 0.3 (0.2-1.0) mg/dL AST 22 (15-37) U/L ALT 37 (12-78) U/L Alkaline Phosphatase 87 (45-117) U/L Total Protein 7.3 D (6.4-8.2) g/dL Albumin 3.1 L (3.4-5.0) g/dL Urine Color (Yellw/Straw) Urine Clarity (Clear) Urine pH (5.0-8.5) Ur Specific [place] (1.002-1.035) Urine Protein (Neg-Trace) mg/dL Urine Glucose (UA) (Negative) mg/dL Urine Ketones (Negative) mg/dL Urine Occult Blood (Negative) Urine Nitrate (Negative) Urine Bilirubin (Negative) Urine Urobilinogen (Less than 2) mg/dL Ur Leukocyte Esterase (Negative) Urine WBC (0-5) /hpf Micro UA Comment Urine Culture Comments Urine Opiates Screen (Neg) Ur Barbiturates Screen (Neg) Ur Amphetamines Screen (Neg) U Benzodiazepines Scrn (Neg) Urine Cocaine Screen (Neg) U Cannabinoids Screen (Neg) 09/30/17 09/30/17 Range/Units 20:05 20:05 WBC (4.0-11.0) th/mm3 RBC (4.50-5.90) mil/mm3 Hgb (13.0-17.0) gm/dL Hct (39.0-51.0) % MCV (80.0-100.0) fL MCH (27.0-34.0) pg MCHC (32.0-36.0) % RDW (11.6-17.2) % Plt Count (150-450) th/mm3 MPV (7.0-11.0) fL Neut % (Auto) (16.0-70.0) % Lymph % (Auto) (9.0-44.0) % [place] % (Auto) (0.0-8.0) % Eos % (Auto) (0.0-4.0) % Baso % (Auto) (0.0-2.0) % Neut # (Auto) (1.8-7.7) th/mm3 Lymph # (Auto) (1.0-4.8) th/mm3 [place] # (Auto) (0.0-0.9) th/mm3 Eos # (Auto) (0.0-0.4) th/mm3 Baso # (Auto) (0.0-0.2) th/mm3 WBC Differential Differential Comment Sodium (136-145) meq/L Potassium (3.5-5.1) meq/L Chloride (98-107) meq/L Carbon Dioxide (21.0-32.0) meq/L Anion Gap (5-15) meq/L BUN (7-18) mg/dL Creatinine (0.60-1.30) mg/dL Estimated GFR (>89) mL/min Random Glucose (74-106) mg/dL Lactic Acid (0.4-2.0) mmol/L Calcium (8.5-10.1) mg/dL Total Bilirubin (0.2-1.0) mg/dL AST (15-37) U/L ALT (12-78) U/L Alkaline Phosphatase (45-117) U/L Total Protein (6.4-8.2) g/dL Albumin (3.4-5.0) g/dL Urine Color Colorless (Yellw/Straw) Urine Clarity Clear (Clear) Urine pH 6.0 (5.0-8.5) Ur Specific [place] 1.002 (1.002-1.035) Urine Protein Negative (Neg-Trace) mg/dL Urine Glucose (UA) Negative (Negative) mg/dL Urine Ketones Negative (Negative) mg/dL Urine Occult Blood Negative (Negative) Urine Nitrate Negative (Negative) Urine Bilirubin Negative (Negative) Urine Urobilinogen Less than 2 (Less than 2) mg/dL Ur Leukocyte Esterase Negative (Negative) Urine WBC Less than 1 (0-5) /hpf Micro UA Comment Culture not ind Urine Culture Comments Culture not ind Urine Opiates Screen Pos H (Neg) Ur Barbiturates Screen Neg (Neg) Ur Amphetamines Screen Neg (Neg) U Benzodiazepines Scrn Neg (Neg) Urine Cocaine Screen Pos H (Neg) U Cannabinoids Screen Pos H (Neg) Imaging Data Radiologist's impression: Chest X-Ray 09/30/17 12:15 CONCLUSION: Negative examination. Discharge Plan Discharge Disposition Patient Disposition: 31 Still Patient Discharge Condition Condition: Stable Discharge Order Discharge Orders: AMA Discharge (Routine); Ordered 10/01/17 Ordered By: Randee Caal Discharge Details Diagnosis: Discitis Physicians Team ED Provider: Bk [place] Primary Care Provider: Primary Care Eleazar,Tanisha Attending Provider: Wenceslao Vleásquez Other Providers: Laure Urena Discharge Interventions Interventions: ED Discharge Assessment Last Done: 09/30/17 16:28 Status ED Status: Left Department Discharge Information Discharge Date/Time: 09/30/17 16:29
--- NOTE | 2017-09-30 12:42 | XR ---
EXAM DATE: 09/30/2017 12:27 PM EDT AGE/SEX: 32 years / Male INDICATIONS: Slight bilateral chest pain with shortness of breath. CLINICAL DATA: This is the patient's initial encounter. Patient reports that signs and symptoms have been present for 1 day and indicates a pain score of 2/10. MEDICAL/SURGICAL HISTORY: None. None. COMPARISON: [facility] [place], CHEST SINGLE AP, 09/03/2017. . FINDINGS: A single AP view of the chest demonstrates the lungs to be symmetrically aerated without evidence of mass, infiltrate or effusion. The cardiomediastinal contours are unremarkable. Osseous structures a re intact. CONCLUSION: Negative examination. Electronically signed by: Sandra Baldwin MD 09/30/2017 12:40 PM EDT
[2017-09-30 16:02] LABS: Baso % (Auto) 0.3 % (0.0-2.0); Eos # (Auto) 0.2 th/mm3 (0.0-0.4); Eos % (Auto) 2.4 % (0.0-4.0); Hematocrit 34.5 % (39.0-51.0); Hemoglobin 11.4 gm/dL (13.0-17.0); Lymph # (Auto) 1.8 th/mm3 (1.0-4.8); Lymph % (Auto) 24.7 % (9.0-44.0); Mean Corpuscular HGB Conc 33.1 % (32.0-36.0); Mean Corpuscular Hemoglobin 26.3 pg (27.0-34.0); Mean Corpuscular Volume 79.3 fL (80.0-100.0); Mean Platelet Volume 7.2 fL (7.0-11.0); Mono # (Auto) 0.7 th/mm3 (0.0-0.9); Mono % (Auto) 8.7 % (0.0-8.0); Neut # (Auto) 4.8 th/mm3 (1.8-7.7); Neut % (Auto) 63.9 % (16.0-70.0); Platelet Count 337 th/mm3 (150-450); Red Blood Count 4.36 mil/mm3 (4.50-5.90); White Blood Count 7.5 th/mm3 (4.0-11.0)
[2017-09-30 16:30] LABS: Alanine Aminotransferase 37 U/L (12-78); Albumin 3.1 g/dL (3.4-5.0); Alkaline Phosphatase 87 U/L (45-117); Anion Gap 5 meq/L (5-15); Aspartate Aminotransferase 22 U/L (15-37); Blood Urea Nitrogen 11 mg/dL (7-18); Calcium 8.7 mg/dL (8.5-10.1); Carbon Dioxide 30.6 meq/L (21.0-32.0); Chloride 105 meq/L (98-107); Glomerular Filtration Rate Greater Than 89 mL/min (>89); Glucose,Random 85 mg/dL (74-106); Potassium 4.3 meq/L (3.5-5.1); Sodium 141 meq/L (136-145); Total Protein 7.3 g/dL (6.4-8.2)
--- NOTE | 2017-09-30 16:33 | P.HP ---
History of Present Illness Primary Care Physician: No Primary Care Physician History of Present Illness: This is a 32-year-old male who is being admitted for suspected discitis. He was admitted 3 nights ago but left AMA claiming he was a difficult venupuncture. At that time NSG and ID recommended CT guided bx which pt left before getting done. He went to [facility] reportedly and left AMA from there as well. He returned last night to ER and left AMA from ER for social reasons claiming that his mother wasn't allowed to see him. Pt says he ultimately has returned b/ c his mother advised him he was going to if he didn't complete his care. Pt reports subjective fevers, nausea. Reports last round of IVDU 3 days ago. Pt reports some pleuritic chest pain as well. Says the bulk of his pain is in his low back. Most recent T spine MRI showed "Prominent edema and enhancement at T10 and to a lesser degree along the inferior anterior endplate of T9. This is more prominent when compared to previous study." as well as "Central protrusion at T12-L1." BCs from 2 days ago are NGTD. Inpatient Certification: I certify that the inpatient services were ordered in accordance with Medicare regulations governing the order. This includes certification that hospital inpatient services are reasonable and necessary and in the case of services not specified as inpatient-only under 42 CFR 419.22(n), that they are appropriately provided as inpatient services in accordance to with the 2-midnight benchmark under 43 CFR 412.3(e) Review of Systems All other systems reviewed negative except as stated in HPI PMFSH - History History Provided By: Patient - Surgical History Surgical History: Surgical History (Last Reviewed 09/28/17 @ 00:46 by Diogenes Handy) H/O elbow surgery S/P surgical manipulation of ankle joint - Tobacco History Second Hand Smoke Exposure: Yes Tobacco Use In Past 30 Days: Yes Smoking Status: Current every day smoker Tobacco Type: Cigarettes - Alcohol History How Often Do You Have a Drink Containing Alcohol: Never - Substance Use History Substance History: Active Abuse - Substance Use Type Benzodiazepines Status: Active Route Used: Intravenously Opiates Status: Active Marijuana Status: Active - Travel History Recent Travel in the [place] Within the Last 8 Weeks: No Recent Travel Out of the Country Within the Last 8 Weeks: No - Immunization History Tetanus Immunization: >5 Years Hx Influenza Vaccine This Season: No Medications and Allergies Active Medications: Active Medications Sodium Chloride (Ns Flush) 2 ml IV.FLUSH BID GORDY Sodium Chloride (Ns Flush) 2 ml IV.FLUSH PRN PRN PRN Reason: FLUSH AFTER USING IV ACCESS Allergies Allergy/AdvReac Type Severity Reaction Status Date / Time *MDRO Multi-Drug Resistant AdvReac Unknown Uncoded 09/03/17 21:10 Organism Home Medications Medication Instructions Recorded Confirmed Type No Known Home Medications 09/28/17 09/28/17 History Exam Vital signs: Vital Signs 09/30/17 11:17 Temperature 98.5 F Pulse Rate 102 H Respiratory Rate 18 Blood Pressure 141/71 H Pulse Oximetry 100 Intake & Output 09/29/17 09/30/17 09/30/17 18:59 06:59 18:59 Weight 68.039 kg Narrative: VS: afebrile GENERAL: lying in bed, AA SKIN: Warm and dry. EYES: No scleral icterus. No injection or drainage. ENT: No nasal bleeding or discharge. Mucous membranes pink and moist. CARDIOVASCULAR: Regular rate and rhythm. no murmurs RESPIRATORY: No accessory muscle use. Clear to auscultation. Breath sounds equal bilaterally. GASTROINTESTINAL: Abdomen soft, non-tender, nondistended. Extremities: No clubbing, cyanosis, or edema. No obvious deformities. MUSCULOSKELETAL: grossly intact ROM in upper and lower extremities proximally; adequate muscle bulk and tone for age and habitus. has thoracic spinous process TTP. NEUROLOGICAL: Awake and alert. No obvious cranial nerve deficits. No facial droop nor slurred speech noted. 2+ patellar reflexes BL with intact sensation to light touch over extremities PSYCHIATRIC: Appropriate mood and affect; insight and judgment normal. Results - Labs CBC & Chem 7: 09/30/17 15:30 09/30/17 15:30 Labs: Laboratory Results - last 24 hr 09/30/17 09/30/17 15:30 15:30 WBC 7.5 RBC 4.36 L Hgb 11.4 L Hct 34.5 L MCV 79.3 L MCH 26.3 L MCHC 33.1 RDW 15.0 Plt Count 337 MPV 7.2 Neut % (Auto) 63.9 Lymph % (Auto) 24.7 [place] % (Auto) 8.7 H Eos % (Auto) 2.4 Baso % (Auto) 0.3 Neut # (Auto) 4.8 Lymph # (Auto) 1.8 [place] # (Auto) 0.7 Eos # (Auto) 0.2 Baso # (Auto) 0.0 WBC Differential . Differential Comment Auto diff final Lactic Acid 0.7 - Imaging Impressions Chest X-Ray 09/30/17 12:15 CONCLUSION: Negative examination. Caprini VTE Risk Assessment Caprini VTE Risk Assessment: No/Low Risk (score <= 1) Caprini Risk Assessment Model: Point Value = 1 Point Value = 2 Point Value = 3 Point Value = 5 Age 41-60 Minor surgery BMI > 25 kg/m2 Swollen legs Varicose veins or History of unexplained or recurrent spontaneous Oral contraceptives or hormone replacement Sepsis (< 1 month) Serious lung disease, including pneumonia (< 1 month) Abnormal pulmonary function Acute myocardial infarction Congestive heart failure (< 1 month) History of inflammatory bowel disease Medical patient at bed rest Age 61-74 Arthroscopic surgery Major open surgery (> 45 min) Laparoscopic surgery (> 45 min) Malignancy Confined to bed (> 72 hours) Immobilizing plaster cast Central venous access Age >= 75 History of VTE Family history of VTE Factor V Leiden Prothrombin [id number] Lupus anticoagulant Anticardiolipin antibodies Elevated serum homocysteine Heparin-induced thrombocytopenia Other congenital or acquired thrombophilia Stroke (< 1 month) Elective arthroplasty Hip, pelvis, or leg fracture Acute spinal cord injury (< 1 month) Prophylaxis Regimen: Total Risk Factor Score Risk Level Prophylaxis Regimen 0-1 Low Early ambulation 2 Moderate Order ONE of the following: *Sequential Compression Device (SCD) *Heparin 5000 units SQ BID 3-4 Higher Order ONE of the following medications: *Heparin 5000 units SQ TID *Enoxaparin/Lovenox 40 mg SQ daily (WT < 150 kg, CrCl > 30 mL/min) *Enoxaparin/Lovenox 30 mg SQ daily (WT < 150 kg, CrCl > 10-29 mL/min) *Enoxaparin/Lovenox 30 mg SQ BID (WT < 150 kg, CrCl > 30 mL/min) AND/OR *Sequential Compression Device (SCD) 5 or more Highest Order ONE of the following medications: *Heparin 5000 units SQ TID (Preferred with Epidurals) *Enoxaparin/Lovenox 40 mg SQ daily (WT < 150 kg, CrCl > 30 mL/min) *Enoxaparin/Lovenox 30 mg SQ daily (WT < 150 kg, CrCl > 10-29 mL/min) *Enoxaparin/Lovenox 30 mg SQ BID (WT < 150 kg, CrCl > 30 mL/min) AND *Sequential Compression Device (SCD) Assessment and Plan - Plan low back pain - suspected thoracic discitis based upon MRI. previously was evaluated by NSG in past few days, no urgent surgical intervention was warranted at that point nor does it seem to be warranted at this time either given lack of neuro deficits. - no neuro deficits. - ID consult, anticipate IR consult for ct guided bx but will let ID decide at this point since pt has received courses of abx over the past 4 days including nafcillin, and multiple doses of vanc and cefepime. continue vanc and zosyn for now. pleuritic chest pain - possible septic emboli, CTA - CXR which i independently reviewed and is negative. early ambulation
[2017-09-30] MEDS ORDERED: Vancomycin Consult Pharmacy 1 EACH OTHER SCH (18:00)
[2017-09-30] MEDS: Vancomycin Inj 1,250 MG in Sodium Chlor 0.9% Inj 250 ML IV.SIG SCH (18:19)
[2017-09-30 21:40] LABS: Bilirubin,Urine Negative (Negative); Clarity,Urine Clear (Clear); Color,Urine Colorless (Yellw/Straw); Glucose,Urine (UA) Negative (Negative); Leukocyte Esterase,Urine Negative (Negative); Nitrite,Urine Negative (Negative); Specific Gravity,Urine 1.002 (1.002-1.035)
[2017-09-30 21:45] LABS: Amphetamine Screen,Urine Neg (Neg); Barbiturate Screen,Urine Neg (Neg); Cannabinoid Screen,Urine Pos (Neg); Cocaine Screen,Urine Pos (Neg)
[2017-09-30 22:14] LABS: Opiate Screen,Urine Pos (Neg)
[2017-10-01] MEDS: Vancomycin Inj 1,250 MG in Sodium Chlor 0.9% Inj 250 ML IV.SIG SCH (03:50)
[2017-10-01] MEDS ORDERED: Acetaminophen 325 MG Tablet PO PRN (08:09)
--- NOTE | 2017-10-01 08:56 | P.AMA ---
AMA Note - AMA Note AMA Statement: Patient Chandu Pierce has decided to leave the hospital against medical advice. This patient has the capacity to refuse care and understands the risks of leaving, including permanent disability and/or , and has had an opportunity to ask questions about his/her condition. The patient has been informed that he/she may return for care at any time, and follow up has been arranged/advised. - AMA Note Discharge Disposition: Left Against Medical Advice
[2017-10-01] MEDS ORDERED: Piperacil/Tazo 4.5 GM Premix 4.5 GM/100 ML BAG IV.SIG SCH (09:00)
[2017-10-01] MEDS ORDERED: Pharmacy Ordered Lab Info OTHER ONE (17:45)
== END 2017-10-01 08:43 | disposition left against medical advice (07) ==
LOC: NEDA 10:39 → N05 10:39 → NEPD 10:39 → N05 16:24
PROVIDERS: ADMIT Hospitalist; ATTEND Hospitalist

== ENCOUNTER 2017-12-09 09:36 | Observation (INO) ==
[2017-12-09 09:43] VITALS: TEMP 98.1; O2SAT 100
--- NOTE | 2017-12-09 10:17 | XR ---
EXAM DATE: 12/09/2017 10:06 AM EDT AGE/SEX: 32 years / Male INDICATIONS: Chest pains, short of breath, cough CLINICAL DATA: This is the patient's initial encounter. Patient reports that signs and symptoms have been present for 1 month and indicates a pain score of 8/10. MEDICAL/SURGICAL HISTORY: None. None. COMPARISON: [facility] – [place], CHEST 1V SINGLE AP, 09/30/2017. . FINDINGS: A single AP view of the chest demonstrates the lungs to be symmetrically aerated without evidence of mass, infiltrate or effusion. The cardiomediastinal contours are unremarkable. Osseous structures a re intact. CONCLUSION: Negative for an acute process Electronically signed by: Chava Lu MD 12/09/2017 10:15 AM EDT
[2017-12-09 11:42] LABS: Baso # (Auto) 0.1 th/mm3 (0.0-0.2); Baso % (Auto) 0.8 % (0.0-2.0); Eos % (Auto) 0.7 % (0.0-4.0); Hematocrit 38.3 % (39.0-51.0); Hemoglobin 12.7 gm/dL (13.0-17.0); Lymph # (Auto) 1.7 th/mm3 (1.0-4.8); Lymph % (Auto) 25.4 % (9.0-44.0); Mean Corpuscular HGB Conc 33.2 % (32.0-36.0); Mean Corpuscular Hemoglobin 25.7 pg (27.0-34.0); Mean Corpuscular Volume 77.6 fL (80.0-100.0); Mean Platelet Volume 7.9 fL (7.0-11.0); Mono # (Auto) 0.4 th/mm3 (0.0-0.9); Mono % (Auto) 5.7 % (0.0-8.0); Neut # (Auto) 4.4 th/mm3 (1.8-7.7); Neut % (Auto) 67.4 % (16.0-70.0); Platelet Count 294 th/mm3 (150-450); Red Blood Count 4.94 mil/mm3 (4.50-5.90); White Blood Count 6.6 th/mm3 (4.0-11.0)
[2017-12-09 11:48] LABS: Chloride 108 meq/L (98-107); Potassium 4.3 meq/L (3.5-5.1); Sodium 140 meq/L (136-145)
[2017-12-09 11:50] LABS: Albumin 3.6 g/dL (3.4-5.0); Calcium 8.7 mg/dL (8.5-10.1)
[2017-12-09 11:51] LABS: Anion Gap 5 meq/L (5-15); Blood Urea Nitrogen 11 mg/dL (7-18); Carbon Dioxide 27.2 meq/L (21.0-32.0); Glucose,Random 100 mg/dL (74-106)
[2017-12-09 11:54] LABS: Alanine Aminotransferase 41 U/L (12-78); Aspartate Aminotransferase 31 U/L (15-37)
[2017-12-09 11:55] LABS: Glomerular Filtration Rate Greater Than 89 mL/min (>89)
[2017-12-09 11:56] LABS: Total Protein 7.6 g/dL (6.4-8.2)
[2017-12-09 11:57] LABS: Alkaline Phosphatase 76 U/L (45-117)
[2017-12-09] MEDS ORDERED: Dicyclomine Inj 20 MG/2 ML Ampul IM ONE (12:31)
[2017-12-09] MEDS ORDERED: HYDROmorphone PF Inj 0.5 MG/0.5 ML Syringe IV.PUSH ONE (13:44)
[2017-12-09] MEDS ORDERED: HYDROmorphone PF Inj 2 MG/ML Vial IV.PUSH ONE (14:00)
[2017-12-09 15:06] VITALS: BP 123/75; PULSE 68; RESP 16
--- NOTE | 2017-12-09 15:22 | MR ---
EXAM DATE: 12/09/2017 3:03 PM EDT AGE/SEX: 32 years / Male INDICATIONS: Abscess. CLINICAL DATA: This is the patient's initial encounter. Patient reports that signs and symptoms have been present for 1 day and indicates a pain score of 5/10. MEDICAL/SURGICAL HISTORY: None. . ORIF left elbow. ORIF left ankle [place] [facility] [place] CON[place]2017. [facility] [place] , 09/04/2017. . TECHNIQUE: Multiplanar, multisequence MRI of the thoracic spine was performed without and with 7 ml Gadavist (gadobutrol) contrast as a single exam dose. FINDINGS: Alignment is normal. There are no compression deformities. There is marked abnormal increased T2 sign al and decreased T1 signal surrounding the T9-10 intervertebral disc space. There is some irregularit y of the endplates surrounding the disc space which may be related to Schmorl node formation, however discitis/osteomyelitis can certainly have this appearance. Compared to the previous examination from September the signal abnormality is decreased in prominence. There are no paraspinal collections identifi ed. Unfortunately the signal intensity of the spinal cord is difficult to assess given the motion art ifact. There is a suggestion of increased signal suggesting a syrinx throughout the visualized cord. This is seen best on sagittal image 5 of series 5. There is a central disc protrusion at T12-L1. T1-T2: The thecal sac has a normal diameter. No evidence of disc bulge or protrusion. T2-T3: The thecal sac has a normal diameter. No evidence of disc bulge or protrusion. T3-T4: The thecal sac has a normal diameter. No evidence of disc bulge or protrusion. T4-T5: The thecal sac has a normal diameter. No evidence of disc bulge or protrusion. T5-T6: The thecal sac has a normal diameter. No evidence of disc bulge or protrusion. T6-T7: The thecal sac has a normal diameter. No evidence of disc bulge or protrusion. T7-T8: The thecal sac has a normal diameter. No evidence of disc bulge or protrusion. T8-T9: The thecal sac has a normal diameter. No evidence of disc bulge or protrusion. T9-T10: The thecal sac has a normal diameter. No evidence of disc bulge or protrusion. T10-T11: The thecal sac has a normal diameter. No evidence of disc bulge or protrusion. T11-T12: The thecal sac has a normal diameter. No evidence of disc bulge or protrusion. T12-L1: Focal disc protrusion without canal or foraminal stenosis. CONCLUSION: 1. There is persistent though decreased signal abnormality at the T9-10 vertebral body levels surrou nding the intervertebral disc space. 2. Limited study by motion artifact, nondiagnostic axial series. Electronically signed by: Anthony Barrios MD 12/09/2017 3:20 PM EDT
[2017-12-09] MEDS ORDERED: Gadobutrol PF 7.5 MMOL/7.5 ML Vial (for RAD) IV.SIG ONE (15:52)
[2017-12-09] MEDS ORDERED: Acetaminophen 325 MG Tablet PO PRN ×2 (16:38→16:41)
[2017-12-09] MEDS ORDERED: Bisacodyl 10 MG Supp RECTAL PRN (16:38)
[2017-12-09] MEDS ORDERED: Naloxone Inj 0.4 MG/ML Vial IV.PUSH PRN (16:38)
[2017-12-09] MEDS ORDERED: Ketorolac Inj 30 MG/ML (IVP) Vial IV.PUSH PRN ×2 (16:41)
--- NOTE | 2017-12-09 16:47 | ED ---
HPI General Chief complaint: Pain: Chronic Stated complaint: Chest pain Source: patient Mode of arrival: ambulatory Limitations: no limitations History of Present Illness HPI narrative: This is a 32-year-old male who has a history of IV drug use who presents to the emergency department reporting back pain, moderate severity in the center of neck radiating to his chest worse with deep breaths that feels similar to when he was diagnosed with discitis 2 months ago. The patient did not stay in the hospital because he was going through withdrawals and he left AGAINST MEDICAL ADVICE despite recommendation for IV antibiotic therapy. Today he was arrested by police and told them about his back pain prompting them to bring him to the emergency department. He denies any numbness or weakness and denies any fevers or chills. Related Data Home Medications Medication Instructions Recorded Confirmed No Known Home Medications 12/09/17 12/09/17 Allergies Allergy/AdvReac Type Severity Reaction Status Date / Time No Known Allergies Allergy Verified 12/09/17 09:43 Review of Systems ROS: all other systems reviewed are negative [facility] Medical History Medical History Discitis thoracic region (Acute) IV drug user (Acute) Surgical History Surgical History H/O elbow surgery (Acute) S/P surgical manipulation of ankle joint (Acute) Social History Social History Substance History: Active Abuse Second Hand Smoke Exposure: Yes Smoking Status: Current every day smoker Tobacco Type: Cigarettes How Often Do You Have a Drink Containing Alcohol: Never Recent Travel in [facility] within the Last 8 Weeks: No Recent Out of Country Travel within the Last 8 Weeks: No Substance Abuse Detail Heroin: Substance Use Status: Active Route Used Substance Abuse: Intravenously Last Used: YESTERDAY Immunization History Tetanus Immunization: <5 Years Hx Influenza Vaccine This Season: No Exam Narrative Exam Narrative: GENERAL:Well appearing, no acute distress SKIN: Focused skin assessment warm and dry. HEAD: Atraumatic. Normocephalic. EYES: Pupils equal and round. No injection or drainage. ENT: Moist mucous membranes NECK: Trachea midline. CARDIOVASCULAR: Regular rate and rhythm. No murmur appreciated. RESPIRATORY: Clear to auscultation. Breath sounds equal bilaterally. GASTROINTESTINAL: Abdomen soft, non-tender, nondistended. MUSCULOSKELETAL: Tender to palpation in the lower thoracic spine. NEUROLOGICAL: Awake and alert. No obvious cranial nerve deficits. Moving all extremities. PSYCHIATRIC: Appropriate mood and affect; insight and judgment normal. Course Initial Documented Vital Signs Temperature 98.1 F 12/09/17 09:39 Pulse Rate 66 12/09/17 09:39 Respiratory Rate 16 12/09/17 09:39 Blood Pressure 128/81 12/09/17 09:39 Pulse Oximetry 100 12/09/17 09:39 Last Documented Vital Signs Temperature 98.1 F 12/09/17 09:39 Pulse Rate 68 12/09/17 15:04 Respiratory Rate 16 12/09/17 15:04 Blood Pressure 123/75 12/09/17 15:04 Pulse Oximetry 100 12/09/17 15:04 Medical Decision Making MDM Narrative Medical decision making narrative: This is a 32-year-old male who has a history of thoracic discitis to the emergency department in police custody reporting back pain. He was placed on a monitor and an IV was established. Labs are reassuring with a normal sed rate. MRI of thoracic spine demonstrates persistent decreased signal abnormality around T9-10 concerning for discitis. It was recommended that the patient stay for continued evaluation and CT-guided biopsy which was recommended on his last admission by Dr. Cline. Patient initially agreed to stay but ultimately left again. He understood the risk of paralysis in the setting of his infection. Medical Screen Exam Complete: Yes Emergency Medical Condition: Yes Lab Data Result diagrams: 12/09/17 11:30 12/09/17 11:30 Lab Results 12/09/17 12/09/17 12/09/17 Range/Units 11:30 11:30 11:30 CBC w Diff Auto diff final WBC 6.6 (4.0-11.0) th/mm3 RBC 4.94 (4.50-5.90) mil/mm3 Hgb 12.7 L (13.0-17.0) gm/dL Hct 38.3 L (39.0-51.0) % MCV 77.6 L (80.0-100.0) fL MCH 25.7 L (27.0-34.0) pg MCHC 33.2 (32.0-36.0) % RDW 17.0 (11.6-17.2) % Plt Count 294 (150-450) th/mm3 MPV 7.9 (7.0-11.0) fL Neut % (Auto) 67.4 (16.0-70.0) % Lymph % (Auto) 25.4 (9.0-44.0) % [place] % (Auto) 5.7 (0.0-8.0) % Eos % (Auto) 0.7 (0.0-4.0) % Baso % (Auto) 0.8 (0.0-2.0) % Neut # (Auto) 4.4 (1.8-7.7) th/mm3 Lymph # (Auto) 1.7 (1.0-4.8) th/mm3 [place] # (Auto) 0.4 (0.0-0.9) th/mm3 Eos # (Auto) 0.0 (0.0-0.4) th/mm3 Baso # (Auto) 0.1 (0.0-0.2) th/mm3 WBC Differential . Differential Comment . ESR 1 (0-15) mm/hr Sodium 140 (136-145) meq/L Potassium 4.3 (3.5-5.1) meq/L Chloride 108 H (98-107) meq/L Carbon Dioxide 27.2 (21.0-32.0) meq/L Anion Gap 5 (5-15) meq/L BUN 11 (7-18) mg/dL Creatinine 0.87 (0.60-1.30) mg/dL Estimated GFR Greater than 89 (>89) mL/min Random Glucose 100 (74-106) mg/dL Calcium 8.7 (8.5-10.1) mg/dL Total Bilirubin 0.3 (0.2-1.0) mg/dL AST 31 (15-37) U/L ALT 41 (12-78) U/L Alkaline Phosphatase 76 (45-117) U/L Troponin I Less than 0.02 L (0.02-0.05) ng/mL Total Protein 7.6 (6.4-8.2) g/dL Albumin 3.6 (3.4-5.0) g/dL Imaging Data Radiologist's impression: Chest X-Ray 12/09/17 09:47 CONCLUSION: Negative for an acute process Thoracic Spine MRI 12/09/17 12:16 CONCLUSION: 1. There is persistent though decreased signal abnormality at the T9-10 vertebral body levels surrounding the intervertebral disc space. 2. Limited study by motion artifact, nondiagnostic axial series. Discharge Plan Discharge Disposition Patient Disposition: 07 Against Medical Advice Discharge Condition Condition: Fair Physicians Team ED Provider: Zayda Murguia Primary Care Provider: Primary Care Tanisha Bush Attending Provider: Suman Gama Other Providers: Jennifer Zendejas Discharge Interventions Interventions: ED Discharge Assessment Last Done: 12/09/17 16:35 Vital Signs Last Done: 12/09/17 15:04 Status ED Status: Admitted Observation Patient
--- NOTE | 2017-12-09 16:56 | P.PNADD ---
Addendum to Inpatient Note Reason for Addendum: Additional Documentation (Not seen left AMA)
[2017-12-09] MEDS ORDERED: Senna/Docusate Sodium 8.6/50 MG Tablet PO SCH (21:00)
--- NOTE | 2017-12-10 18:48 | ECG ---
Date Performed: 12/09/2017 Time Performed: 09:36:59 PTAGE: 32 years EKG: Sinus rhythm WITH SINUS ARRHYTHMIA NORMAL ECG PREVIOUS TRACING : 09/03/2017 22.12 DOCTOR: Aurelio Leigh Interpretating Date/Time 12/10/2017 18:39:39
== END 2017-12-09 16:40 | disposition left against medical advice (07) ==
LOC: PHED 09:36 → PHEDA 14:35 → INTOOBSV 16:18
PROVIDERS: ADMIT Internal Medicine; ATTEND Internal Medicine
DX: R07.9 Chest pain, unspecified; F19.90 Other psychoactive substance use, unspecified, uncomplicated; M46.40 Discitis, unspecified, site unspecified; F17.210 Nicotine dependence, cigarettes, uncomplicated